=== PATIENT | male | born 1945 | race Caucasian/White ===

== ENCOUNTER 2018-03-14 16:18 | Inpatient (IN) ==
[2018-03-14] MEDS ORDERED: 0.9 % Sodium Chloride 1,000 ML IVC ONE (17:22)
[2018-03-14 17:32] LABS: Basophils # 0.1 K/mcL (0.0-0.2); Basophils % 0.5 %; Eosinophils # 0.3 K/mcL (0.0-0.6); Eosinophils % 2.8 %; Hematocrit 38.8 % (37.5-50.1); Hemoglobin 13.4 g/dL (12.9-16.9); Immature Granulocytes % 0.4 % (0-4); Lymphocytes # 1.5 K/mcL (0.6-4.6); Lymphocytes % 14.1 %; Mean Corpuscular HGB Conc 34.5 g/dL (31.6-35.5); Mean Corpuscular Hemoglobin 31.7 pg (28.0-33.3); Mean Corpuscular Volume 91.7 fL (83.0-100.0); Mean Platelet Volume 11.7 fL (9.4-12.4); Monocytes % 9.7 %; Neutrophils # 7.6 K/mcL (1.6-8.9); Platelet Count 242 K/mcL (140-400); Red Blood Count 4.23 M/mcL (4.19-5.50); Red Cell Distribution Width 14.8 % (11.5-14.5); Segmented Neutrophils % 72.5 %
--- NOTE | 2018-03-14 17:38 | Emergency Department Note ---
Disposition Clinical Impression: Dehydration, Renal insufficiency, Bradycardia Disposition: Admitted As Inpatient Condition: Fair Referrals: Wiliam Keane, RN [facility] [Primary Care Provider] - Forms: ED Satisfaction Letter, Work/School Release Time of Disposition: 20:59 General Adult HPI - General Chief complaint: ED Abdominal Pain Stated complaint: incontinent of bowels Time Seen by Provider: 03/14/18 16:33 Source: patient Limitations: age - History of Present Illness Pain Scale: 0 - Related Data Home Medications Medication Instructions Recorded Confirmed Calcium Carbonate/Vitamin D3 1 each PO BID 07/10/16 11/13/17 [Calcium 600 + Vit D Tablet] Lisinopril 30 mg PO DAILY 07/10/16 11/13/17 Pravastatin Sodium [Pravachol] 80 mg PO HS 07/10/16 11/13/17 amLODIPine [Norvasc] 5 mg PO DAILY 07/10/16 11/13/17 Ferrous Sulfate [Iron] 325 mg PO BID 03/14/18 03/14/18 Furosemide [Lasix] 80 mg PO DAILY 03/14/18 03/14/18 Pregabalin [Lyrica] 225 mg PO BID 03/14/18 03/14/18 Ropinirole HCl [Requip] 0.5 mg PO DAILY 03/14/18 03/14/18 hydroCHLOROthiazide 25 mg PO DAILY 03/14/18 03/14/18 [Hydrochlorothiazide] Previous Rx's Medication Instructions Recorded Aspirin Enteric Coated [Aspirin EC] 325 mg PO DAILY #21 tablet. 07/09/16 Ibuprofen [Motrin] 800 mg PO Q8HR PRN #30 tablet 07/31/16 Allergies Allergy/AdvReac Type Severity Reaction Status Date / Time No Known Allergies Allergy Verified 03/14/18 20:30 Past Medical History - Past Medical History Medical history: Reports: arthritis, asthma, CVA, DVT, hypertension, TIA Surgical history: Reports: appendectomy Psychiatric history: Reports: no psych history - Social History Smoking Status: Former smoker Smokeless Tobacco Status: No Alcohol use: Reports: none Drug use: Reports: none Physical Exam - General Limitations: age General appearance: alert Course Vital Signs Temperature 98.3 F 03/14/18 16:26 Pulse Rate 77 03/14/18 16:26 Respiratory Rate 16 03/14/18 16:26 Blood Pressure 64/39 03/14/18 16:26 O2 Sat by Pulse Oximetry 88 03/14/18 16:26 Temperature 98.3 F 03/14/18 16:41 Pulse Rate 47 03/14/18 20:54 Respiratory Rate 18 03/14/18 20:54 Blood Pressure 141/127 03/14/18 20:54 O2 Sat by Pulse Oximetry 96 03/14/18 20:54 Oxygen Delivery Oxygen Delivery Nasal Cannula Medical Decision Making - Lab Data Result diagrams: 03/14/18 17:04 03/14/18 17:04 Lab Results 03/14/18 03/14/18 03/14/18 Range/Units 17:04 17:04 17:04 WBC 10.5 (4.3-11.1) K/mcL RBC 4.23 (4.19-5.50) M/mcL Hgb 13.4 (12.9-16.9) g/dL Hct 38.8 (37.5-50.1) % MCV 91.7 (83.0-100.0) fL MCH 31.7 (28.0-33.3) pg MCHC 34.5 (31.6-35.5) g/dL RDW 14.8 H (11.5-14.5) % Plt Count 242 (140-400) K/mcL MPV 11.7 (9.4-12.4) fL Immature Gran % 0.4 (0-4) % Seg Neutrophils % 72.5 % Lymphocytes % 14.1 % Monocytes % 9.7 % Eosinophils % 2.8 % Basophils % 0.5 % Neutrophils # 7.6 (1.6-8.9) K/mcL Lymphocytes # 1.5 (0.6-4.6) K/mcL Monocytes # 1.0 (0.0-1.3) K/mcL Eosinophils # 0.3 (0.0-0.6) K/mcL Basophils # 0.1 (0.0-0.2) K/mcL PT 10.6 (9.4-12.1) Seconds INR 1.0 APTT 32.7 (26.0-36.0) Seconds Sodium 139 (136-145) mEq/L Potassium 3.0 L (3.5-5.1) mEq/L Chloride 96 L (98-107) mEq/L Carbon Dioxide 29 (23-29) mEq/L BUN 79 H (8-23) mg/dL Creatinine 5.36 H (0.70-1.30) mg/dL Est GFR ( Amer) 13 L (> 60) Est GFR (Non-Af Amer) 11 L (> 60) BUN/Creatinine Ratio 15 (6-26) Glucose 123 H (70-105) mg/dL Calculated Osmolality 313 H (280-300) Calcium 11.6 H (8.6-10.3) mg/dL Total Bilirubin 0.3 (0.3-1.0) mg/dL AST 31 (13-39) Units/L ALT 39 (7-52) Units/L Alkaline Phosphatase 59 (34-104) Units/L Serum Total Protein 7.0 (6.4-8.9) g/dL Albumin 4.0 (3.5-5.7) g/dL Globulin 3.0 (2.4-3.5) g/dL Albumin/Globulin Ratio 1.3 (1.1-2.2) Urine Color (Yellow) Urine Clarity (Clear) Urine pH (5.0-8.0) pH Units Ur Specific [place] (1.010-1.025) Urine Protein (Neg-Trace) mg/dL Urine Glucose (UA) (Normal) mg/dL Urine Ketones (Negative) mg/dL Urine Blood (Negative) Urine Nitrite (Negative) Urine Bilirubin (Negative) Urine Urobilinogen (Normal) mg/dL Ur Leukocyte Esterase (Negative) Stool Occult Bld Scrn (Negative) 03/14/18 03/14/18 Range/Units 18:20 19:50 WBC (4.3-11.1) K/mcL RBC (4.19-5.50) M/mcL Hgb (12.9-16.9) g/dL Hct (37.5-50.1) % MCV (83.0-100.0) fL MCH (28.0-33.3) pg MCHC (31.6-35.5) g/dL RDW (11.5-14.5) % Plt Count (140-400) K/mcL MPV (9.4-12.4) fL Immature Gran % (0-4) % Seg Neutrophils % % Lymphocytes % % Monocytes % % Eosinophils % % Basophils % % Neutrophils # (1.6-8.9) K/mcL Lymphocytes # (0.6-4.6) K/mcL Monocytes # (0.0-1.3) K/mcL Eosinophils # (0.0-0.6) K/mcL Basophils # (0.0-0.2) K/mcL PT (9.4-12.1) Seconds INR APTT (26.0-36.0) Seconds Sodium (136-145) mEq/L Potassium (3.5-5.1) mEq/L Chloride (98-107) mEq/L Carbon Dioxide (23-29) mEq/L BUN (8-23) mg/dL Creatinine (0.70-1.30) mg/dL Est GFR ( Amer) (> 60) Est GFR (Non-Af Amer) (> 60) BUN/Creatinine Ratio (6-26) Glucose (70-105) mg/dL Calculated Osmolality (280-300) Calcium (8.6-10.3) mg/dL Total Bilirubin (0.3-1.0) mg/dL AST (13-39) Units/L ALT (7-52) Units/L Alkaline Phosphatase (34-104) Units/L Serum Total Protein (6.4-8.9) g/dL Albumin (3.5-5.7) g/dL Globulin (2.4-3.5) g/dL Albumin/Globulin Ratio (1.1-2.2) Urine Color Yellow (Yellow) Urine Clarity Turbid A (Clear) Urine pH 6.5 (5.0-8.0) pH Units Ur Specific [place] 1.016 (1.010-1.025) Urine Protein 100 H (Neg-Trace) mg/dL Urine Glucose (UA) Normal (Normal) mg/dL Urine Ketones Trace H (Negative) mg/dL Urine Blood Moderate H (Negative) Urine Nitrite Negative (Negative) Urine Bilirubin Negative (Negative) Urine Urobilinogen Normal (Normal) mg/dL Ur Leukocyte Esterase Large H (Negative) Stool Occult Bld Scrn Positive A (Negative) Attestation Statement - Attestation Attestation: I, Alden Houston DO, examined this patient [id number] and my medical decision-making was reviewed with Quinton Sandoval PGY-3, Resident Physician. I agree with the documented findings, disposition and treatment plan as described except to the extent set forth below. Please see my progress notes for details. 72-year-old male presents emergency room with complaint of lower abdominal pain and discomfort along with incontinence of stool. Is having incontinence of stool for several months. Patient also has had dark black colored stool that same timeframe. He denies any history of GI bleed course gross blood in his stool. Denies any fevers or chills chest pain shortness of breath headache or vision change. He does have a history of low blood pressure that comes and goes. He does take blood pressure medication. Physical exam shows a well- appearing gentleman he is alert he is oriented his mucous members are moist his oropharynx is patent trachea is midline his lungs are clear his heart is regular his abdomen is soft nontender nondistended with no guarding no rigidity no peritoneal symptoms. He does have some left lower quadrant discomfort but no point tenderness or peritoneal-like symptoms. He moves both extremities without any complication in the upper and lower orientation. His pulses are intact. His conjunctiva appear to be normal with no signs of pale presentation he has no visible signs of anemia at least noted at this point. Patient will have Hemoccult testing completed along with CBC chemistry liver function testing and lipase on CT imaging of the abdomen and urinalysis. Fluids and nausea medication will be started. Disposition pending the full workup and treatment course. See detailed documentation of physical exam, medical intervention, medical decision-making and disposition in the resident physician' s note. 1946 Patient found to have a potassium of 3.0. His hemoglobin is stable. His coagulation studies are normal. Patient does have significantly elevated BUN/ creatinine, creatinine, significantly decreased GFR. Patient will be provided with fluids. Nephrology consultation will be established. CT imaging of the abdomen is still pending. Disposition will be admission the hospital as a full workup and treatment course are completed. No critical care applied the patient 's treatment course at this time 2044 CT imaging the abdomen is unremarkable for acute intra-abdominal pathology. He does have a stable appearing 3.2 cm abdominal aortic aneurysm. There is no signs of bleed or leak. Patient's renal insufficiency is unknown etiology at this time. Fluid resuscitation was started. Potassium was provided. She will process completed to the hospitalist. No other concerns or issues. Patient is otherwise currently stable. His heart rate has dropped down into the 40s with the patient has been asymptomatic and conversational throughout these events. He may have overmedication as part of his etiology as well. Fluids have been given here and his initial presentation with a heart rate of 77 may have been response to his dehydration. Admission process to be established at this time.
[2018-03-14] MEDS ORDERED: Ondansetron 4 MG/2 ML VIAL IVP ONE (17:42)
[2018-03-14 17:43] LABS: Albumin/Globulin Ratio 1.3 (1.1-2.2); Bilirubin,Total 0.3 mg/dL (0.3-1.0); Calcium 11.6 mg/dL (8.6-10.3)
[2018-03-14 18:00] LABS: Prothrombin Time 10.6 Seconds (9.4-12.1)
[2018-03-14 18:02] LABS: Activated Partial Thrombo Time 32.7 Seconds (26.0-36.0)
[2018-03-14 18:31] LABS: Bilirubin,Urine Negative (Negative); Blood,Urine Moderate (Negative); Clarity,Urine Turbid (Clear); Color,Urine Yellow (Yellow); Glucose,Urine (UA) Normal (Normal); Ketones,Urine Trace mg/dL (Negative); Leukocyte Esterase,Urine Large (Negative); Nitrite,Urine Negative (Negative); PH,Urine 6.5 pH Units (5.0-8.0); Protein,Urine 100 mg/dL (Neg-Trace); Specific Gravity,Urine 1.016 (1.010-1.025); Urobilinogen,Urine Normal (Normal)
[2018-03-14] MEDS ORDERED: Potassium Chloride 40 MEQ, Lidocaine 1% 2 ML in D5% in Water 500 ML IVPB ONE (19:57)
[2018-03-14] MEDS: 0.9 % Sodium Chloride 1,000 ML IVC SCH (20:51)
--- NOTE | 2018-03-14 21:30 | Emergency Department Note ---
Disposition Clinical Impression: Dehydration, Renal insufficiency, Bradycardia Disposition: Admitted As Inpatient Condition: Fair Time of Disposition: 20:00 Abdominal Pain HPI - General Chief Complaint: ED Abdominal Pain Stated Complaint: incontinent of bowels Time Seen by Provider: 03/14/18 16:33 Source: patient Limitations: no limitations Nursing Notes Reviewed: Yes Vital Signs Reviewed: Yes - History of Present Illness HPI Narrative: Mr. Pompa is a 72-year-old male with past medical history of CVA approximately 11 years ago, and NEMO in the past who presents to the ED for dark stools, bowel incontinence, and lower abdominal pain that have been present for the past several months. There are no reports of nausea, vomiting, or hematochezia. He does admit to diarrhea intermittently over the past several months as well that have been treated successfully with antidiarrheal medication but he is currently having diarrhea. Pain Scale: 0 - Related Data Home Medications Medication Instructions Recorded Confirmed Calcium Carbonate/Vitamin D3 1 tab PO BID 07/10/16 03/14/18 [Calcium 600 + Vit D Tablet] Lisinopril 30 mg PO DAILY 07/10/16 03/14/18 Pravastatin Sodium [Pravachol] 80 mg PO HS 07/10/16 03/14/18 amLODIPine [Norvasc] 5 mg PO DAILY 07/10/16 03/14/18 Ferrous Sulfate [Iron] 325 mg PO BID 03/14/18 03/14/18 Furosemide [Lasix] 80 mg PO DAILY 03/14/18 03/14/18 Pregabalin [Lyrica] 225 mg PO BID 03/14/18 03/14/18 Ropinirole HCl [Requip] 0.5 mg PO DAILY 03/14/18 03/14/18 hydroCHLOROthiazide 25 mg PO DAILY 03/14/18 03/14/18 [Hydrochlorothiazide] Previous Rx's Medication Instructions Recorded Aspirin Enteric Coated [Aspirin EC] 325 mg PO DAILY #21 tablet. 07/09/16 Ibuprofen [Motrin] 800 mg PO Q8HR PRN #30 tablet 07/31/16 Allergies Allergy/AdvReac Type Severity Reaction Status Date / Time No Known Allergies Allergy Verified 03/14/18 20:30 Constitutional: Denies: fever, chills, weakness, weight change Eyes: Denies: eye pain, eye discharge, vision change Cardiovascular: Denies: chest pain, palpitations, dyspnea on exertion, edema, syncope Respiratory: Denies: cough, dyspnea, wheezes, hemoptysis, stridor Gastrointestinal: Reports: abdominal pain, diarrhea, melena. Denies: nausea, vomiting, constipation, hematemesis, hematochezia Genitourinary: Denies: urgency, dysuria, frequency, hematuria Musculoskeletal: Denies: arthralgia, myalgia Integumentary: Denies: rash, abrasion, lesions Neurological: Denies: headache, weakness, numbness, paresthesias, confusion, abnormal gait, vertigo Psychiatric: Denies: anxiety, depression, suicidal thoughts, homicidal thoughts , auditory hallucinations, visual hallucinations Endocrine: Denies: fatigue Hematological/Lymphatic: Denies: easy bleeding, easy bruising Abdominal Pain PMH - Past Medical History Medical history: Reports: arthritis, asthma, CVA, DVT, hypertension, TIA Male Surgical History: Reports: appendectomy Psychiatric history: Reports: no psych history - Social History Smoking status: Former smoker Alcohol use: Reports: none Drug use: Reports: none Physical Exam - General Limitations: no limitations, age General appearance: alert - Head Head exam: atraumatic, normocephalic, normal inspection - Eye Eye exam: Present: normal appearance, PERRL, EOMI - ENT ENT exam: normal oropharynx, mucous membranes dry - Neck Neck exam: Present: normal inspection, full ROM, trachea midline - Chest Chest inspection: Present: normal inspection, symmetric chest wall rise - Respiratory Respiratory exam: Present: normal lung sounds bilaterally - Cardiovascular Cardiovascular exam: Present: regular rate, normal rhythm, normal heart sounds - Abdominal Exam Abdominal exam: Present: soft, tenderness. Absent: distention, guarding, rebound, rigidity - Rectal Exam Rectal exam: Present: normal rectal tone, heme (+) stool - Extremities Exam Extremities exam: Present: normal inspection, full ROM. Absent: tenderness, pedal edema - Neurological Exam Neurological exam: Present: alert, oriented X3 - Psychiatric Psychiatric exam: Present: normal affect, normal mood - Skin Skin exam: Present: warm, dry, intact, normal color Course Course Narrative: Patient arrives complaining of lower abdominal pain, dark stools, and incontinence. His blood pressure on arrival was checked several times and was around 60/40. He was given a bolus of normal saline with significant improvement in his foot pressure. CT scan of the abdomen was nonacute. Hemoccult is positive. Chart review shows the patient's baseline creatinine appears to be high end of normal however on laboratory testing in the ED today it was elevated at 5.36. We contacted nephrology about the patient's case and they will follow him Vital Signs Temperature 98.3 F 03/14/18 16:26 Pulse Rate 77 03/14/18 16:26 Respiratory Rate 16 03/14/18 16:26 Blood Pressure 64/39 03/14/18 16:26 O2 Sat by Pulse Oximetry 88 03/14/18 16:26 Temperature 98.3 F 03/14/18 16:41 Pulse Rate 47 03/14/18 20:54 Respiratory Rate 16 03/14/18 21:24 Blood Pressure 118/60 03/14/18 21:24 O2 Sat by Pulse Oximetry 96 03/14/18 20:54 Oxygen Delivery Oxygen Delivery Nasal Cannula Abdominal Pain - MDM Narrative Medical decision making narrative: Patient's blood pressure stabilized with fluid bolus, Hemoccult positive, CT scan abdomen/pelvis nonacute. Given the patient's significant elevation in creatinine and NEMO we have consult with nephrology who agrees to see the patient in the hospital - Lab Data Result diagrams: 03/14/18 17:04 03/14/18 17:04 Lab Results 03/14/18 03/14/18 03/14/18 Range/Units 17:04 17:04 17:04 WBC 10.5 (4.3-11.1) K/mcL RBC 4.23 (4.19-5.50) M/mcL Hgb 13.4 (12.9-16.9) g/dL Hct 38.8 (37.5-50.1) % MCV 91.7 (83.0-100.0) fL MCH 31.7 (28.0-33.3) pg MCHC 34.5 (31.6-35.5) g/dL RDW 14.8 H (11.5-14.5) % Plt Count 242 (140-400) K/mcL MPV 11.7 (9.4-12.4) fL Immature Gran % 0.4 (0-4) % Seg Neutrophils % 72.5 % Lymphocytes % 14.1 % Monocytes % 9.7 % Eosinophils % 2.8 % Basophils % 0.5 % Neutrophils # 7.6 (1.6-8.9) K/mcL Lymphocytes # 1.5 (0.6-4.6) K/mcL Monocytes # 1.0 (0.0-1.3) K/mcL Eosinophils # 0.3 (0.0-0.6) K/mcL Basophils # 0.1 (0.0-0.2) K/mcL PT 10.6 (9.4-12.1) Seconds INR 1.0 APTT 32.7 (26.0-36.0) Seconds Sodium 139 (136-145) mEq/L Potassium 3.0 L (3.5-5.1) mEq/L Chloride 96 L (98-107) mEq/L Carbon Dioxide 29 (23-29) mEq/L BUN 79 H (8-23) mg/dL Creatinine 5.36 H (0.70-1.30) mg/dL Est GFR ( Amer) 13 L (> 60) Est GFR (Non-Af Amer) 11 L (> 60) BUN/Creatinine Ratio 15 (6-26) Glucose 123 H (70-105) mg/dL Calculated Osmolality 313 H (280-300) Calcium 11.6 H (8.6-10.3) mg/dL Total Bilirubin 0.3 (0.3-1.0) mg/dL AST 31 (13-39) Units/L ALT 39 (7-52) Units/L Alkaline Phosphatase 59 (34-104) Units/L Serum Total Protein 7.0 (6.4-8.9) g/dL Albumin 4.0 (3.5-5.7) g/dL Globulin 3.0 (2.4-3.5) g/dL Albumin/Globulin Ratio 1.3 (1.1-2.2) Urine Color (Yellow) Urine Clarity (Clear) Urine pH (5.0-8.0) pH Units Ur Specific [place] (1.010-1.025) Urine Protein (Neg-Trace) mg/dL Urine Glucose (UA) (Normal) mg/dL Urine Ketones (Negative) mg/dL Urine Blood (Negative) Urine Nitrite (Negative) Urine Bilirubin (Negative) Urine Urobilinogen (Normal) mg/dL Ur Leukocyte Esterase (Negative) Stool Occult Bld Scrn (Negative) 03/14/18 03/14/18 Range/Units 18:20 19:50 WBC (4.3-11.1) K/mcL RBC (4.19-5.50) M/mcL Hgb (12.9-16.9) g/dL Hct (37.5-50.1) % MCV (83.0-100.0) fL MCH (28.0-33.3) pg MCHC (31.6-35.5) g/dL RDW (11.5-14.5) % Plt Count (140-400) K/mcL MPV (9.4-12.4) fL Immature Gran % (0-4) % Seg Neutrophils % % Lymphocytes % % Monocytes % % Eosinophils % % Basophils % % Neutrophils # (1.6-8.9) K/mcL Lymphocytes # (0.6-4.6) K/mcL Monocytes # (0.0-1.3) K/mcL Eosinophils # (0.0-0.6) K/mcL Basophils # (0.0-0.2) K/mcL PT (9.4-12.1) Seconds INR APTT (26.0-36.0) Seconds Sodium (136-145) mEq/L Potassium (3.5-5.1) mEq/L Chloride (98-107) mEq/L Carbon Dioxide (23-29) mEq/L BUN (8-23) mg/dL Creatinine (0.70-1.30) mg/dL Est GFR ( Amer) (> 60) Est GFR (Non-Af Amer) (> 60) BUN/Creatinine Ratio (6-26) Glucose (70-105) mg/dL Calculated Osmolality (280-300) Calcium (8.6-10.3) mg/dL Total Bilirubin (0.3-1.0) mg/dL AST (13-39) Units/L ALT (7-52) Units/L Alkaline Phosphatase (34-104) Units/L Serum Total Protein (6.4-8.9) g/dL Albumin (3.5-5.7) g/dL Globulin (2.4-3.5) g/dL Albumin/Globulin Ratio (1.1-2.2) Urine Color Yellow (Yellow) Urine Clarity Turbid A (Clear) Urine pH 6.5 (5.0-8.0) pH Units Ur Specific [place] 1.016 (1.010-1.025) Urine Protein 100 H (Neg-Trace) mg/dL Urine Glucose (UA) Normal (Normal) mg/dL Urine Ketones Trace H (Negative) mg/dL Urine Blood Moderate H (Negative) Urine Nitrite Negative (Negative) Urine Bilirubin Negative (Negative) Urine Urobilinogen Normal (Normal) mg/dL Ur Leukocyte Esterase Large H (Negative) Stool Occult Bld Scrn Positive A (Negative) - Radiology Data Radiology results reviewed: Yes I reviewed the patient's radiology results. Attestation Statement - Attestation Attestation: I, Alden Houston DO, examined this patient [id number] and my medical decision-making was reviewed with Quinton Sandoval PGY-3, Resident Physician. I agree with the documented findings, disposition and treatment plan as described except to the extent set forth below. Please see my progress notes for details.
[2018-03-15] MEDS: 0.9 % Sodium Chloride 1,000 ML IVC SCH ×2 (08:44→15:31)
[2018-03-15 09:50] LABS: Basophils # 0.1 K/mcL (0.0-0.2); Basophils % 0.8 %; Eosinophils # 0.4 K/mcL (0.0-0.6); Hematocrit 38.8 % (37.5-50.1); Hemoglobin 12.8 g/dL (12.9-16.9); Immature Granulocytes % 0.3 % (0-4); Lymphocytes # 1.1 K/mcL (0.6-4.6); Lymphocytes % 17.9 %; Mean Corpuscular Hemoglobin 30.5 pg (28.0-33.3); Mean Corpuscular Volume 92.6 fL (83.0-100.0); Mean Platelet Volume 11.6 fL (9.4-12.4); Monocytes # 0.6 K/mcL (0.0-1.3); Monocytes % 8.9 %; Neutrophils # 4.1 K/mcL (1.6-8.9); Platelet Count 173 K/mcL (140-400); Red Blood Count 4.19 M/mcL (4.19-5.50); Red Cell Distribution Width 14.4 % (11.5-14.5); Segmented Neutrophils % 65.1 %
[2018-03-15 10:09] LABS: Albumin 3.7 g/dL (3.5-5.7); Albumin/Globulin Ratio 1.3 (1.1-2.2); Bilirubin,Total 0.4 mg/dL (0.3-1.0); Calcium 10.2 mg/dL (8.6-10.3); Globulin 2.9 g/dL (2.4-3.5); Potassium 3.6 mEq/L (3.5-5.1); Total Protein 6.6 g/dL (6.4-8.9)
--- NOTE | 2018-03-15 10:57 | Nephrology Consult Note ---
Date of Encounter: 03/15/18 Time of Encounter: 10:20 Assessment and Plan (1) NEMO (acute kidney injury) Current Visit: Yes Status: Acute NEMO in setting of hypovolemia, hypotension and GI losses. Will continue IV hydration. Will obtain 24 hour protein. Will obtain Renal US and urine C&S. Avoid nephrotoxins. Accurate I&O's. Will continue to monitor. History of Present Illness - Reason for Consult Acute Kidney Injury - History of Present Illness Mr. Pompa is a 72 year old male who presented to ER yesterday. He states he has been having mid abdominal pain and diarrhea immediately after every time he eats. He denies vomiting.He states this has been going on for some time. He states his appetite and fluid intake decreased. 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 On presentation, hypotensive SBP 60's, bradycardic 40's-50's both of which responded to IV fluids. Creat 5.36 , K 3.0. Given K rider. FOB positive. Urine + protein, blood, leuks. 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 Prior labs indicate normal renal fct with few episodes mild NEMO in 2016 and 2017, returning to normal renal fct. He denies NSAID's. He denies proteinuria, hematuria. Admits "bladder stones." He admits LE swelling "for years." Has IV 0.9 NS at 125 cc/hr. Renal fct improving, creat 3.65. K 3.6. Documented urine output 800cc. Past Med Surg Social Fam HX - Past Medical History Medical history: arthritis, asthma, CVA, DVT, hypertension, TIA Additional medical history: bph Psychiatric history: no psych history - Past Surgical History Surgical History: appendectomy Additional surgical history: left and right total knee replacement, - Social History Smoking Status: Former smoker Smokeless Tobacco Status: No Alcohol use: none Drug use: none - Family History Father Hx Family Cardiac Disorders: Yes Hx Family Respiratory Disorders: Yes Hx Family Cancer: No Hx Family GI Disorders: No Hx Family Genitourinary Disorders: No Hx Family Endocrine Disorder: No Hx Family Musculoskeletal Disorders: No Hx Family Neuromuscular Disorders: No Hx Family Neurologic Disorders: No Hx Family HEENT Disorders: No Hx Family Autoimmune Disorders: No Hx Family Reproductive Disorders: No Hx Family Psychosocial Disorders: No Mother Adopted: No Living Status: Age at : 65 Hx Family Cardiac Disorders: Yes Hx Family Respiratory Disorders: No Hx Family Cancer: No Hx Family GI Disorders: No Hx Family Genitourinary Disorders: No Hx Family Endocrine Disorder: No Hx Family Musculoskeletal Disorders: No Hx Family Neuromuscular Disorders: No Hx Family Neurologic Disorders: No Hx Family HEENT Disorders: No Hx Family Autoimmune Disorders: No Hx Family Reproductive Disorders: No Hx Family Psychosocial Disorders: No Hx Family Medical Disorders: No Medications and Allergies Aspirin Enteric Coated [Aspirin EC] 325 mg PO DAILY #21 tablet. 07/09/16 [Rx] Calcium Carbonate/Vitamin D3 [Calcium 600 + Vit D Tablet] 1 tab PO BID 07/10/16 [History] Lisinopril 30 mg PO DAILY 07/10/16 [History] Pravastatin Sodium [Pravachol] 80 mg PO HS 07/10/16 [History] amLODIPine [Norvasc] 5 mg PO DAILY 07/10/16 [History] Ibuprofen [Motrin] 800 mg PO Q8HR PRN #30 tablet 07/31/16 [Rx] Ferrous Sulfate [Iron] 325 mg PO BID 03/14/18 [History] Furosemide [Lasix] 80 mg PO DAILY 03/14/18 [History] Pregabalin [Lyrica] 225 mg PO BID 03/14/18 [History] Ropinirole HCl [Requip] 0.5 mg PO DAILY 03/14/18 [History] hydroCHLOROthiazide [Hydrochlorothiazide] 25 mg PO DAILY 03/14/18 [History] 3 Allergy/AdvReac Type Severity Reaction Status Date / Time No Known Allergies Allergy Verified 03/14/18 20:30 Review of Systems All Systems: reviewed and no additional remarkable complaints except as stated Exam - Vital Signs Vital signs: Initial Vital Signs Temp Pulse Resp BP Pulse Ox 98.3 F 77 16 64/39 88 03/14/18 16:26 03/14/18 16:26 03/14/18 16:26 03/14/18 16:26 03/14/18 16:26 Vital Signs - Last 8 Hours Temp Pulse Resp BP Pulse Ox 03/15/18 05:31 97.5 F L 52 16 151/78 95 Intake and Output 03/14/18 03/15/18 03/15/18 23:59 07:59 15:59 Intake Total 1000 / 1000 Output Total 800 / 800 Balance 200 / 200 Intake: IV Fluids 1000 / 1000 0.9 % Sodium Chloride 1,000 ML 1000 / 1000 @ 125 mls/hr IVC .Q8H MARLA Rx#: [id number] Output: Catheter 800 / 800 Other: Weight 116.89 kg 107.9 kg Patient Weight 03/15/18 23:59 Weight 107.9 kg - General Appearance General appearance: well-developed, well-nourished, appears started age, obese EENT: mucous membranes moist Neck: no JVD Respiratory: clear Cardiology: edema Additional Comments: trace pitting LE Gastrointestinal: normoactive bowel sounds, no tenderness Integumentary: warm and dry Psychiatric: mood/affect appropriate, cooperative Results - Lab Results 03/15/18 09:24 03/15/18 09:24 Most recent lab results Calcium 10.2 mg/dL (8.6-10.3) 03/15/18 09:24 Consult Discharge Plan - Plan Referrals: Wiliam Keane, SEWING MACHINE ADJUSTER [Primary Care Provider] -
--- NOTE | 2018-03-15 11:22 | Event Note ---
Date of Encounter: 03/15/18 Time of Encounter: 09:57 I was notified at 9:50 AM about patient being admitted overnight. ED did not sign out patient to night team, as confirmed by discussion with night team by [facility]. We were never notified about this patient, and we never accepted admission. Patient has been on the floor without any physician examination or orders all night. I was notified by [facility] that patient needs to be admitted to hospitalist service per interior systems carpenter Dr. Dominguez. I have agreed to evaluate patient and do full H&P.
[2018-03-15] MEDS ORDERED: Ondansetron 4 MG/2 ML VIAL IVP PRN (11:23)
[2018-03-15] MEDS ORDERED: NON-FORMULARY MEDICATION 1 EACH EACH (Calcium Carbonate/Vitamin D3 [Calcium 600 + Vit D Ta PO SCH (11:30)
[2018-03-15] MEDS ORDERED: hydroCHLOROthiazide 25 MG TABLET PO SCH (11:30)
[2018-03-15] MEDS ORDERED: Acetaminophen 325 MG TABLET PO PRN (11:37)
[2018-03-15] MEDS ORDERED: Naloxone 0.4 MG/ML INJ IVP PRN (11:37)
--- NOTE | 2018-03-15 11:45 | Internal Med History&Physical ---
Date of Encounter: 03/15/18 Time of Encounter: 11:45 Internal Medicine - H&P: HPI Chief complaint: "Stomach pain and diarrhea" Admitted From: Emergency Dept Plans for Post Hospital Care: Home History of present illness: Mr. Pompa is a 72 year old male who presented to ED with 1-day history of abdominal pain and 1-month history of diarrhea. He states that he noticed some loose, dark stool yesterday. He has also been incontinent of stool. He denies hematochezia. He previously had some nausea. He denies fever, chills, chest pain, SOB, or changes in bladder. He is ESRD on dialysis. He has chronic indwelling marmolejo for neurogenic bladder. He states that his intake of food and fluids have been good, although pain is worse after eating. In the ED, CT abdomen/pelvis was unremarkable for acute pathology. He had mild hypokalemia to 3.0. Creatinine looked to be elevated from baseline. He was given KCl PO in ED. He was given IVF and anti-emetics in ED. He was slightly bradycardiac, which improved with fluid resuscitation. Hemoccult was positive. At the time of my examination, patient looked to be in no acute distress. He wants to eat and go home. Pain in abdomen is controlled at this time. He denies nausea and vomiting. He has no other complaints at this time. Past Med Surg Social Fam HX - Past Medical History Attestation: Yes The following information was validated with the patient. Source: patient Medical history: arthritis, asthma, CVA, DVT, hypertension, TIA Additional medical history: bph Psychiatric history: no psych history - Past Surgical History Surgical History: appendectomy Additional surgical history: left and right total knee replacement, - Social History Smoking Status: Former smoker Smokeless Tobacco Status: No Alcohol use: none Drug use: none - Family History Father Hx Family Cardiac Disorders: Yes Hx Family Respiratory Disorders: Yes Hx Family Cancer: No Hx Family GI Disorders: No Hx Family Genitourinary Disorders: No Hx Family Endocrine Disorder: No Hx Family Musculoskeletal Disorders: No Hx Family Neuromuscular Disorders: No Hx Family Neurologic Disorders: No Hx Family HEENT Disorders: No Hx Family Autoimmune Disorders: No Hx Family Reproductive Disorders: No Hx Family Psychosocial Disorders: No Mother Adopted: No Living Status: Age at : 65 Hx Family Cardiac Disorders: Yes Hx Family Respiratory Disorders: No Hx Family Cancer: No Hx Family GI Disorders: No Hx Family Genitourinary Disorders: No Hx Family Endocrine Disorder: No Hx Family Musculoskeletal Disorders: No Hx Family Neuromuscular Disorders: No Hx Family Neurologic Disorders: No Hx Family HEENT Disorders: No Hx Family Autoimmune Disorders: No Hx Family Reproductive Disorders: No Hx Family Psychosocial Disorders: No Hx Family Medical Disorders: No - Additional Family History Additional family history: Family history reviewed with patient. Internal Medicine - H&P: Meds Aspirin Enteric Coated [Aspirin EC] 325 mg PO DAILY #21 tablet.dr 07/09/16 [Rx] Calcium Carbonate/Vitamin D3 [Calcium 600 + Vit D Tablet] 1 tab PO BID 07/10/16 [History] Lisinopril 30 mg PO DAILY 07/10/16 [History] Pravastatin Sodium [Pravachol] 80 mg PO HS 07/10/16 [History] amLODIPine [Norvasc] 5 mg PO DAILY 07/10/16 [History] Ibuprofen [Motrin] 800 mg PO Q8HR PRN #30 tablet 07/31/16 [Rx] Ferrous Sulfate [Iron] 325 mg PO BID 03/14/18 [History] Furosemide [Lasix] 80 mg PO DAILY 03/14/18 [History] Pregabalin [Lyrica] 225 mg PO BID 03/14/18 [History] Ropinirole HCl [Requip] 0.5 mg PO DAILY 03/14/18 [History] hydroCHLOROthiazide [Hydrochlorothiazide] 25 mg PO DAILY 03/14/18 [History] 3 Allergy/AdvReac Type Severity Reaction Status Date / Time No Known Allergies Allergy Verified 03/14/18 20:30 All Systems PM: A 10-system review of systems was performed and is negative for pertinent findings except as documented above in the HPI. - Constitutional Vitals: Temp Pulse Resp BP Pulse Ox 97.7 F 47 16 121/51 97 03/15/18 10:53 03/15/18 10:53 03/15/18 10:53 03/15/18 10:53 03/15/18 10:53 General appearance: Present: cooperative, A&O X 3, pleasant, no acute distress, obese, answers questions appropriately - Head Head exam: Present: atraumatic, normal inspection, normocephalic - Eye Eye exam: Present: EOMI, PERRL. Absent: conjunctival injection, nystagmus, scleral icterus - ENT ENT exam: Present: mucous membranes moist, normal external ear exam, normal oropharynx - Neck Neck exam general surgery: Present: supple, trachea midline. Absent: lymphadenopathy, tenderness, thyromegaly - Respiratory Respiratory exam: Present: CTAB. Absent: accessory muscle use, rales, rhonchi, wheezes Additional comments: Normal WOB - Cardiovascular Cardiovascular exam: Present: RRR, +S1, +S2. Absent: diastolic murmur, gallop, rubs, systolic murmur Additional comments: No BLE edema - GI/Abdominal GI/Abdominal exam: Present: normal bowel sounds, soft, tenderness (Mild TTP diffusely across abdomen). Absent: distended, guarding, hepatomegaly, mass, rebound, splenomegaly - Neurological Exam Neurological exam: Present: alert, CN II-XII intact, oriented X3, no focal deficits, strengths equal and symetr throughout. Absent: motor sensory deficit , facial droop, speech deficit - Psychiatric Psychiatric exam: Present: normal affect, normal mood. Absent: agitated, anxious, depressed - Skin Skin exam: Present: dry, intact, warm. Absent: cyanosis, rash Internal Med - H&P Results - Labs CBC & Chem 7: 03/15/18 09:24 03/15/18 09:24 Labs: Short CBC 03/15/18 Range/Units 09:24 WBC 6.3 (4.3-11.1) K/mcL Hgb 12.8 L (12.9-16.9) g/dL Hct 38.8 (37.5-50.1) % Plt Count 173 (140-400) K/mcL Neutrophils # 4.1 (1.6-8.9) K/mcL BMP 03/15/18 09:24 Sodium 140 Potassium 3.6 Chloride 106 Carbon Dioxide 23 BUN 72 H Creatinine 3.65 H Glucose 138 H Calcium 10.2 Liver Function 03/15/18 Range/Units 09:24 Total Bilirubin 0.4 (0.3-1.0) mg/dL AST 29 (13-39) Units/L ALT 34 (7-52) Units/L Alkaline Phosphatase 56 (34-104) Units/L Albumin 3.7 (3.5-5.7) g/dL - Assessment and plan (1) NEMO (acute kidney injury) Current Visit: Yes Status: Acute Assessment and plan: Admit for observation with telemetry. Creatinine improved this AM. Continue IVF. Start clear liquid diet. Nephrology consulted; appreciate input. I personally discussed case with nephrology PHOTOGRAPHIC [employer]ORATORY TECHNICIAN. They are ordering repeat UA/ reflex culture, urine protein, and renal ultrasound. Strict I&Os and dialy weights. Repeat BMP in AM. (2) GI bleed Current Visit: Yes Status: Acute Assessment and plan: Hemoccult positive. History of melena, diarrhea, and abdominal pain over last month. H/H stable this AM. Start protonix 40 mg IV BID. Zofran IV PRN nausea/ vomiting. Continue IVF. GI stool studies for diarrhea ordered. Recheck CBC in AM. Qualifiers: GI bleed type/associated pathology: unspecified gastrointestinal hemorrhage type Qualified Code(s): K92.2 - Gastrointestinal hemorrhage, unspecified (3) Diarrhea Current Visit: Yes Status: Acute Assessment and plan: Management as per above. Qualifiers: Diarrhea type: unspecified type Qualified Code(s): R19.7 - Diarrhea, unspecified (4) Dehydration Current Visit: Yes Status: Acute Assessment and plan: Continue IVF as per above. Recheck BMP in AM. (5) Bradycardia Current Visit: Yes Status: Acute Assessment and plan: Improved with fluid resuscitation. Continue telemetry. BP trending up, so restarted home BP medications without HR effects. (6) Neurogenic bladder Current Visit: Yes Status: Chronic Assessment and plan: Continue chronic marmolejo and change per schedule. (7) Obesity Current Visit: Yes Status: Chronic Assessment and plan: Counselled on lifestyle modifications. Qualifiers: Obesity type: unspecified obesity type Obesity classification: unspecified obesity classification Serious obesity comorbidity presence: unspecified whether serious comorbidity present Qualified Code(s): E66.9 - Obesity, unspecified (8) DVT prophylaxis Current Visit: Yes Status: Acute Assessment and plan: Start renally dosed lovenox 30 mg SQ QD and SCDs. - Time Spent With Patient Total time spent is greater than 50% in coordination of care (as documented) at patient's floor/unit and/or counseling patient: less than 15 minutes
[2018-03-15] MEDS: amLODIPine 5 MG TABLET PO SCH (12:09)
[2018-03-15] MEDS: Aspirin Enteric Coated 325 MG Tablet PO SCH (12:09)
[2018-03-15] MEDS: Pantoprazole 40 MG VIAL IVP SCH ×4 (12:11→19:30)
[2018-03-15] MEDS: Pregabalin 75 MG CAPSULE PO SCH ×2 (12:11→21:45)
[2018-03-15] MEDS: rOPINIRole 0.25 MG TABLET PO SCH (12:12)
[2018-03-15 15:35] LABS: Bilirubin,Urine Negative (Negative); Blood,Urine Large (Negative); Clarity,Urine Cloudy (Clear); Color,Urine Yellow (Yellow); Glucose,Urine (UA) Normal (Normal); Ketones,Urine Negative (Negative); Leukocyte Esterase,Urine Large (Negative); Nitrite,Urine Negative (Negative); PH,Urine 6.5 pH Units (5.0-8.0); Protein,Urine Negative (Neg-Trace); Specific Gravity,Urine 1.007 (1.010-1.025); Urobilinogen,Urine Normal (Normal)
[2018-03-15 15:36] LABS: Bacteria,Urine Many per hpf (None-Few); Hyaline Casts,Urine None Seen per lpf (None-Few); Squamous Epithelial Cell,Urine Moderate per lpf (None-Few); WBC,Urine 30-50 per hpf (0-3)
[2018-03-15 18:02] LABS: Adenovirus F 40/41 PCR Not detected (Not detect); Astrovirus PCR Not detected (Not detect); C.difficile Toxin A/B by PCR Not detected (Not detect); Campylobacter by PCR Not detected (Not detect); Cryptosporidium by PCR Not detected (Not detect); Cyclospora cayetanensis PCR Not detected (Not detect); E. coli O157 by PCR Not detected (Not detect); Entamoeba histolytica PCR Not detected (Not detect); Enteroaggregative E.coli(EAEC) Not detected (Not detect); Enteropathogenic E.coli(EPEC) Not detected (Not detect); Enterotoxigenic E.coli (ETEC) Not detected (Not detect); Giardia lamblia PCR Not detected (Not detect); Norovirus GI/GII PCR Not detected (Not detect); Plesiomonas shigelloides PCR Not detected (Not detect); Rotavirus A PCR Not detected (Not detect); Salmonella PCR Not detected (Not detect); Sapovirus PCR Not detected (Not detect); Shig/EnteroinvasiveE coli EIEC Not detected (Not detect); Shigalike tox-prod E coli STEC Not detected (Not detect); Vibrio PCR Not detected (Not detect); Vibrio cholerae PCR Not detected (Not detect); Yersinia enterocolitica PCR Not detected (Not detect)
[2018-03-16] MEDS: Pantoprazole 40 MG VIAL IVP SCH (06:04)
[2018-03-16] MEDS: *HR* Enoxaparin 30 MG/0.3 ML SYRINGE SQ SCH (06:04)
[2018-03-16] MEDS ORDERED: Aminoglycoside Consult 1 EACH MC ONE (08:19)
[2018-03-16 08:44] LABS: Protein/Creatinine Ratio,Urine 0.46 mg/mg (0.00-0.20)
[2018-03-16] MEDS: amLODIPine 5 MG TABLET PO SCH (09:33)
[2018-03-16] MEDS: Pregabalin 75 MG CAPSULE PO SCH ×2 (09:33→22:13)
[2018-03-16] MEDS: rOPINIRole 0.25 MG TABLET PO SCH (09:33)
[2018-03-16] MEDS: 0.9 % Sodium Chloride 1,000 ML IVC SCH ×2 (09:34→18:13)
[2018-03-16] MEDS: Aspirin Enteric Coated 325 MG Tablet PO SCH (09:34)
[2018-03-16 10:24] LABS: Basophils % 0.5 %; Eosinophils # 0.3 K/mcL (0.0-0.6); Eosinophils % 4.8 %; Hematocrit 33.2 % (37.5-50.1); Hemoglobin 11.2 g/dL (12.9-16.9); Immature Granulocytes % 0.3 % (0-4); Lymphocytes # 0.9 K/mcL (0.6-4.6); Lymphocytes % 13.8 %; Mean Corpuscular HGB Conc 33.7 g/dL (31.6-35.5); Mean Corpuscular Hemoglobin 31.3 pg (28.0-33.3); Mean Corpuscular Volume 92.7 fL (83.0-100.0); Monocytes # 0.6 K/mcL (0.0-1.3); Monocytes % 8.9 %; Neutrophils # 4.5 K/mcL (1.6-8.9); Platelet Count 175 K/mcL (140-400); Red Blood Count 3.58 M/mcL (4.19-5.50); Red Cell Distribution Width 14.3 % (11.5-14.5); Segmented Neutrophils % 71.7 %
[2018-03-16 10:43] LABS: Albumin 3.2 g/dL (3.5-5.7); Albumin/Globulin Ratio 1.3 (1.1-2.2); Bilirubin,Total 0.3 mg/dL (0.3-1.0); Calcium 8.9 mg/dL (8.6-10.3); Globulin 2.5 g/dL (2.4-3.5); Magnesium 1.4 mg/dL (1.6-2.6); Potassium 3.2 mEq/L (3.5-5.1); Total Protein 5.7 g/dL (6.4-8.9)
[2018-03-16] MEDS: cefTRIAXone 2,000 MG in 0.9 % Sodium Chloride Mini Bag 100 ML IVPB SCH (11:02)
--- NOTE | 2018-03-16 11:18 | Nephrology Progress Note ---
Date of Encounter: 03/16/18 Time of Encounter: 11:10 - Assessment and Plan (1) NEMO (acute kidney injury) Current Visit: Yes Status: Acute NEMO in setting of hypovolemia, hypotension and GI losses. Hx neurogenic bladder with chronic Joyce. Renal fct improving, creat 1.93, documented urine output 2800cc. Will continue IV hydration. Renal US, no obstructive uropathy. Complex renal cyst left kidney. Will have to follow with CT w/contrast after renal fct improved. Avoid nephrotoxins. Accurate I&O's. Will continue to monitor. Subjective Interval history: Laying in bed, watching tv. Wants to go home, states feeling better. No new complaints. 24 hour urine protein in progress. Objective - Vital Signs Vital signs: Vital Signs Temp Pulse Resp BP Pulse Ox 03/16/18 07:52 97.7 F 52 15 142/61 97 03/16/18 03:18 98.0 F 50 16 127/72 99 03/16/18 01:17 97.6 F 54 18 143/60 97 03/15/18 20:14 97.9 F 62 16 122/69 98 03/15/18 16:44 97.5 F L 57 19 119/81 100 Intake and Output 03/15/18 03/16/18 03/16/18 23:59 07:59 15:59 Intake Total 1850 / 1850 Output Total 1999 / 1999 1100 / 1100 Balance -150 / -150 -1100 / -1100 Intake: IV Fluids 1000 / 1000 0.9 % Sodium Chloride 1,000 ML 1000 / 1000 @ 125 mls/hr IVC .Q8H [facility] Rx#: [id number] Oral 850 / 850 Output: Urine 600 / 600 Catheter 2000 / 2000 500 / 500 Other: Meal Dinner Breakfast Percent of Meal Consumed 100% Weight 110.586 kg Patient Weight 03/16/18 23:59 Weight 110.586 kg - General Appearance General appearance: Present: well-developed, well-nourished, appears started age , obese EENT: Present: mucous membranes moist Neck: Present: no JVD Respiratory: Present: clear Cardiology: Present: edema, regular rate, regular rhythm Additional Comments: mild Gastrointestinal: Present: normoactive bowel sounds, no tenderness Integumentary: Present: warm and dry Neurologic: Present: alert and oriented x3 - Lab 03/16/18 10:05 06/16/18 09:23 Most recent lab results Calcium 8.9 mg/dL (8.6-10.3) 03/16/18 09:23 Magnesium 1.4 mg/dL (1.6-2.6) L 03/16/18 09:23 Urine Creatinine TNP 03/15/18 15:10 Ur Total Protein 24 Hr TNP 03/15/18 15:10 Urine Total Protein TNP 03/15/18 15:10 - VTE Documentation of Mechanical Device: Intermittent pneumatic compression device Consult Discharge Plan - Plan Referrals: Wiliam Keane, [employer] [Primary Care Provider] -
--- NOTE | 2018-03-16 16:50 | Internal Med Progress Note ---
Date of Encounter: 03/16/18 Time of Encounter: 08:45 - Assessment and plan (1) Diarrhea Current Visit: Yes Status: Acute Assessment and plan: Currently improved. Possible reason for acute kidney injury. Stool GI panel including C. difficile negative. Continue IV hydration and when necessary loperamide Diet as tolerated. Qualifiers: Diarrhea type: unspecified type Qualified Code(s): R19.7 - Diarrhea, unspecified (2) NEMO (acute kidney injury) Current Visit: Yes Status: Acute Assessment and plan: Noted to have a few episodes of NEMO with normal serum creatinine in between. Serum creatinine noted to have improved today to 1.93, from 5.36. Nephrology on board, appreciate recommendations. Continue IV hydration and monitor urine output. Avoid new nephrotoxic agents. Hold diuretic and REGULO inhibitor. Renal ultrasound shows simple cyst in right superior pole, complex cyst in inferior lateral left kidney containing calcifications. CT abdomen with contrast is recommended for further evaluation. (3) Neurogenic bladder Current Visit: Yes Status: Chronic Assessment and plan: Continue chronic marmolejo and change per schedule. (4) Dehydration Current Visit: Yes Status: Acute (5) Bradycardia Current Visit: Yes Status: Resolved (6) DVT prophylaxis Current Visit: Yes Status: Acute (7) Obesity Current Visit: Yes Status: Chronic Qualifiers: Obesity type: unspecified obesity type Obesity classification: adult class 2 (BMI 35 - 39.9) Serious obesity comorbidity presence: unspecified whether serious comorbidity present Body mass index: BMI 37.0-37.9 Qualified Code(s) : E66.9 - Obesity, unspecified; Z68.37 - Body mass index (BMI) 37.0-37.9, adult (8) UTI (urinary tract infection) Current Visit: Yes Status: Acute Assessment and plan: Catheter related UTI due to chronic Marmolejo catheter. Urinalysis shows large leukocyte esterase, 30-50 WBC, many bacteria. Preliminary urine culture grows gram-positive cocci and gram-negative rods. Continue IV Rocephin and added IV vancomycin. Qualifiers: Urinary tract infection type: acute cystitis Hematuria presence: with hematuria Qualified Code(s): N30.01 - Acute cystitis with hematuria - Time Spent With Patient Total time spent is greater than 50% in coordination of care (as documented) at patient's floor/unit and/or counseling patient: - Subjective Interval history: Reports feeling well and wants to go home; improving diarrhea; no nausea or vomiting, no fever/chills, abdominal pain; unable to tell me the duration of diarrhea but probably a few days; no sick contacts at home; no h/o- CKD as far as he knows; - Constitutional Vitals: Temp Pulse Resp BP Pulse Ox 97.8 F 51 18 111/70 96 03/16/18 15:15 03/16/18 15:15 03/16/18 15:15 03/16/18 15:15 03/16/18 15:15 General appearance: Present: cooperative, A&O X 3, obese, answers questions appropriately - Respiratory Respiratory exam: Present: CTAB. Absent: accessory muscle use, rales, rhonchi, wheezes - Cardiovascular Cardiovascular exam: Present: RRR, +S1, +S2. Absent: diastolic murmur, gallop, rubs, systolic murmur - GI/Abdominal GI/Abdominal exam: Present: normal bowel sounds, soft (obese), no peritoneal signs. Absent: distended, tenderness - Extremities Exam Extremities exam: Present: full ROM, warm, radial pulses palpable and symmetrical. Absent: calf tenderness, cyanotic, pedal edema - Neurological Exam Neurological exam: Present: CN II-XII intact, oriented X3, no focal deficits. Absent: pronater drift, facial droop, speech deficit Internal Medicine: Result - Labs CBC & Chem 7: 03/17/18 04:30 03/17/18 04:30 Labs: Short CBC 03/16/18 Range/Units 10:05 WBC 6.2 (4.3-11.1) K/mcL Hgb 11.2 L D (12.9-16.9) g/dL Hct 33.2 L (37.5-50.1) % Plt Count 175 (140-400) K/mcL Neutrophils # 4.5 (1.6-8.9) K/mcL BMP 03/16/18 09:23 Sodium 140 Potassium 3.2 L Chloride 108 H Carbon Dioxide 25 BUN 44 H Creatinine 1.93 H Glucose 189 H Calcium 8.9 Liver Function 03/16/18 Range/Units 09:23 Total Bilirubin 0.3 (0.3-1.0) mg/dL AST 22 (13-39) Units/L ALT 28 (7-52) Units/L Alkaline Phosphatase 52 (34-104) Units/L Albumin 3.2 L (3.5-5.7) g/dL - ABG Interpretation ABG results: PT/INR, D-dimer PT 10.6 Seconds (9.4-12.1) 03/14/18 17:04 - VTE Documentation of Mechanical Device: Intermittent pneumatic compression device Consult Discharge Plan - Plan Referrals: Wiliam Keane, [employer] [Primary Care Provider] -
[2018-03-16] MEDS ORDERED: Vancomycin 1,750 MG in 0.9 % Sodium Chloride 250 ML IVPB SCH (17:00)
[2018-03-17] MEDS: 0.9 % Sodium Chloride 1,000 ML IVC SCH (03:11)
[2018-03-17 04:45] LABS: Basophils % 0.5 %; Eosinophils # 0.4 K/mcL (0.0-0.6); Eosinophils % 6.1 %; Hematocrit 35.9 % (37.5-50.1); Hemoglobin 11.9 g/dL (12.9-16.9); Immature Granulocytes % 0.3 % (0-4); Lymphocytes # 1.4 K/mcL (0.6-4.6); Lymphocytes % 23.1 %; Mean Corpuscular HGB Conc 33.1 g/dL (31.6-35.5); Mean Corpuscular Hemoglobin 30.8 pg (28.0-33.3); Mean Platelet Volume 11.2 fL (9.4-12.4); Monocytes # 0.6 K/mcL (0.0-1.3); Monocytes % 10.1 %; Neutrophils # 3.6 K/mcL (1.6-8.9); Platelet Count 190 K/mcL (140-400); Red Blood Count 3.86 M/mcL (4.19-5.50); Red Cell Distribution Width 14.5 % (11.5-14.5); Segmented Neutrophils % 59.9 %
[2018-03-17 05:08] LABS: Calcium 8.7 mg/dL (8.6-10.3); Magnesium 1.5 mg/dL (1.6-2.6); Potassium 3.4 mEq/L (3.5-5.1)
[2018-03-17] MEDS: *HR* Enoxaparin 30 MG/0.3 ML SYRINGE SQ SCH (05:47)
[2018-03-17] MEDS: Aspirin Enteric Coated 325 MG Tablet PO SCH (09:10)
[2018-03-17] MEDS: cefTRIAXone 2,000 MG in 0.9 % Sodium Chloride Mini Bag 100 ML IVPB SCH (09:10)
[2018-03-17] MEDS: Pregabalin 75 MG CAPSULE PO SCH ×2 (09:10→22:16)
[2018-03-17] MEDS: amLODIPine 5 MG TABLET PO SCH (09:10)
[2018-03-17] MEDS: rOPINIRole 0.25 MG TABLET PO SCH (09:10)
--- NOTE | 2018-03-17 09:13 | Nephrology Progress Note ---
Date of Encounter: 03/17/18 Time of Encounter: 08:40 - Assessment and Plan (1) NEMO (acute kidney injury) Current Visit: Yes Status: Acute NEMO in setting of hypovolemia, hypotension and GI losses. Hx neurogenic bladder with chronic Joyce. Renal fct improving, creat 1.49. documented urine output 2700cc. Will stop IV hydration. Renal US, no obstructive uropathy. Complex renal cyst left kidney. Will have to follow with CT w/contrast outpatient after renal fct improved. Avoid nephrotoxins. Accurate I&O's. Will continue to monitor. Subjective Interval history: Laying in bed, watching tv, eating breakfast. No new complaints. Objective - Vital Signs Vital signs: Vital Signs Temp Pulse Resp BP Pulse Ox 03/17/18 07:28 97.6 F 59 16 152/77 97 03/17/18 04:02 98.3 F 52 16 133/70 96 03/16/18 23:28 97.6 F 81 16 181/74 96 03/16/18 19:41 98.4 F 60 16 136/71 94 03/16/18 15:15 97.8 F 51 18 111/70 96 03/16/18 11:35 98.3 F 52 15 103/55 95 Intake and Output 03/16/18 03/17/18 03/17/18 23:59 07:59 15:59 Intake Total 1750 / 1750 1400 / 1400 Output Total 800 / 800 600 / 600 725 / 725 Balance 950 / 950 800 / 800 -725 / -725 Intake: IV Fluids 1500 / 1500 1400 / 1400 0.9 % Sodium Chloride 1,000 ML 1000 / 1000 1400 / 1400 @ 125 mls/hr IVC .Q8H [facility] Rx#: [id number] Vancocin 1,750 MG In 0.9 % 500 / 500 Sodium Chloride 500 ML @ 333.3 mls/hr IVPB Q24H [facility] Rx#: [id number] Oral 250 / 250 Output: Urine 200 / 200 Catheter 600 / 600 600 / 600 725 / 725 Other: Meal Dinner Percent of Meal Consumed 80% Weight 113.171 kg - General Appearance General appearance: Present: well-developed, well-nourished, appears started age , obese EENT: Present: mucous membranes moist Neck: Present: no JVD Respiratory: Present: clear Cardiology: Present: no edema, regular rate, regular rhythm Gastrointestinal: Present: normoactive bowel sounds, no tenderness Integumentary: Present: warm and dry Psychiatric: Present: mood/affect appropriate, cooperative - Lab 03/17/18 04:30 03/17/18 04:30 Most recent lab results Calcium 8.7 mg/dL (8.6-10.3) 03/17/18 04:30 Magnesium 1.5 mg/dL (1.6-2.6) L 03/17/18 04:30 Urine Creatinine TNP 03/15/18 15:10 Ur Total Protein 24 Hr TNP 03/15/18 15:10 Urine Total Protein TNP 03/15/18 15:10 - VTE Documentation of Mechanical Device: Intermittent pneumatic compression device Consult Discharge Plan - Plan Referrals: Wiliam Keane, [employer] [Primary Care Provider] -
[2018-03-17] MEDS ORDERED: Potassium Chloride Elixir 20 MEQ/15 ML UDC PO ONE (10:25)
[2018-03-17] MEDS ORDERED: Levofloxacin 500 MG/100 ML 500 MG/100 ML BAG IVPB SCH (11:00)
[2018-03-17 12:47] LABS: Total Volume 24 Hour,Urine 2.88 Liters (0.80-1.80)
[2018-03-17] MEDS: Ampicillin 2 GM in 0.9 % Sodium Chloride Mini Bag 100 ML IVPB SCH ×2 (13:38→17:22)
--- NOTE | 2018-03-17 13:46 | Internal Med Progress Note ---
Date of Encounter: 03/17/18 Time of Encounter: 11:50 - Assessment and plan (1) Diarrhea Current Visit: Yes Status: Resolved Assessment and plan: Currently improved. Possible reason for acute kidney injury. Stool GI panel including C. difficile negative. Continue IV hydration and when necessary loperamide Diet as tolerated. Qualifiers: Diarrhea type: unspecified type Qualified Code(s): R19.7 - Diarrhea, unspecified (2) NEMO (acute kidney injury) Current Visit: Yes Status: Acute Assessment and plan: Noted to have a few episodes of NEMO with normal serum creatinine in between. Serum creatinine noted to have improved today to 1.49, from 5.36. Nephrology on board, appreciate recommendations. Continue IV hydration and monitor urine output. Avoid new nephrotoxic agents. Hold diuretic and REGULO inhibitor. Renal ultrasound shows simple cyst in right superior pole, complex cyst in inferior lateral left kidney containing calcifications. CT abdomen with contrast to be considered as an outpatient to avoid IV contrast at this time; (3) Neurogenic bladder Current Visit: Yes Status: Chronic (4) Dehydration Current Visit: Yes Status: Acute (5) Bradycardia Current Visit: Yes Status: Resolved (6) DVT prophylaxis Current Visit: Yes Status: Acute (7) Obesity Current Visit: Yes Status: Chronic Qualifiers: Obesity type: unspecified obesity type Obesity classification: adult class 2 (BMI 35 - 39.9) Serious obesity comorbidity presence: unspecified whether serious comorbidity present Body mass index: BMI 37.0-37.9 Qualified Code(s) : E66.9 - Obesity, unspecified; Z68.37 - Body mass index (BMI) 37.0-37.9, adult (8) UTI (urinary tract infection) Current Visit: Yes Status: Acute Assessment and plan: Catheter related UTI due to chronic Joyce catheter. Urinalysis shows large leukocyte esterase, 30-50 WBC, many bacteria. Urine culture grows ampicillin sensitive enterococcus and Proteus resistant to Rocephin. Will change antibiotics to IV Levaquin and ampicillin. Qualifiers: Urinary tract infection type: acute cystitis Hematuria presence: with hematuria Qualified Code(s): N30.01 - Acute cystitis with hematuria (9) Hypokalemia Current Visit: Yes Status: Acute Assessment and plan: Supplement with oral potassium chloride, monitor closely. (10) Hypomagnesemia Current Visit: Yes Status: Acute Assessment and plan: Supplement with IV magnesium sulfate. - Time Spent With Patient Total time spent is greater than 50% in coordination of care (as documented) at patient's floor/unit and/or counseling patient: - Subjective Interval history: Feels well; reports taking Potassium elixir too quickly and that it is too "strong" for him; coughing after the episode; vitals stable; improved diarrhea; no nausea, vomiting, abdominal pain, noted to have appropriate urine output; - Constitutional Vitals: Temp Pulse Resp BP Pulse Ox 97.4 F L 68 15 132/78 95 03/17/18 11:47 03/17/18 11:47 03/17/18 11:47 03/17/18 11:47 03/17/18 11:47 General appearance: Present: cooperative, mild distress (due to coughing), A&O X 3, obese, answers questions appropriately - Respiratory Respiratory exam: Present: CTAB. Absent: accessory muscle use, rales, rhonchi, wheezes - Cardiovascular Cardiovascular exam: Present: RRR, +S1, +S2, tachycardia. Absent: diastolic murmur, gallop, rubs, systolic murmur - GI/Abdominal GI/Abdominal exam: Present: normal bowel sounds, soft (obese), no peritoneal signs. Absent: distended, tenderness - Extremities Exam Extremities exam: Present: full ROM, warm, radial pulses palpable and symmetrical. Absent: calf tenderness, cyanotic, pedal edema Internal Medicine: Result - Labs CBC & Chem 7: 03/17/18 04:30 03/17/18 04:30 Labs: Short CBC 03/17/18 Range/Units 04:30 WBC 6.1 (4.3-11.1) K/mcL Hgb 11.9 L (12.9-16.9) g/dL Hct 35.9 L (37.5-50.1) % Plt Count 190 (140-400) K/mcL Neutrophils # 3.6 (1.6-8.9) K/mcL BMP 03/17/18 04:30 Sodium 144 Potassium 3.4 L Chloride 112 H Carbon Dioxide 27 BUN 32 H Creatinine 1.49 H Glucose 120 H Calcium 8.7 - ABG Interpretation ABG results: PT/INR, D-dimer PT 10.6 Seconds (9.4-12.1) 03/14/18 17:04 - VTE Documentation of Mechanical Device: Intermittent pneumatic compression device Consult Discharge Plan - Plan Referrals: Wiliam Keane, [facility] [Primary Care Provider] -
[2018-03-18] MEDS: Ampicillin 2 GM in 0.9 % Sodium Chloride Mini Bag 100 ML IVPB SCH ×2 (00:26→06:03)
[2018-03-18 05:07] LABS: BUN/Creatinine Ratio 16 (6-26); Blood Urea Nitrogen 21 mg/dL (8-23); Carbon Dioxide 27 mEq/L (23-29); Chloride 111 mEq/L (98-107); Glucose 135 mg/dL (70-105); Magnesium 1.6 mg/dL (1.6-2.6); Osmolality,Calculated 303 (280-300); Potassium 3.7 mEq/L (3.5-5.1); Sodium 144 mEq/L (136-145); eGFR For African Americans > 60 (> 60); eGFR For Non-African Americans 53 (> 60)
[2018-03-18] MEDS ORDERED: *HR* Enoxaparin 40 MG/0.4 ML SYRINGE SQ SCH (06:00)
[2018-03-18] MEDS: Pregabalin 75 MG CAPSULE PO SCH (07:55)
[2018-03-18] MEDS: Aspirin Enteric Coated 325 MG Tablet PO SCH (07:55)
[2018-03-18] MEDS: amLODIPine 5 MG TABLET PO SCH (07:55)
[2018-03-18] MEDS: rOPINIRole 0.25 MG TABLET PO SCH (07:56)
--- NOTE | 2018-03-18 09:26 | Nephrology Progress Note ---
Date of Encounter: 03/18/18 Time of Encounter: 08:40 - Assessment and Plan (1) NEMO (acute kidney injury) Current Visit: Yes Status: Acute NEMO in setting of hypovolemia, hypotension and GI losses. Hx neurogenic bladder with chronic Joyce. Renal fct improving, creat 1.31. documented urine output 3925cc.Renal US, no obstructive uropathy. Complex renal cyst left kidney. Will have Urology follow with CT w/contrast outpatient after renal fct improved. Avoid nephrotoxins. Will sign off. Call again if needed. Subjective Interval history: Laying in bed, watching tv, eating breakfast. No new complaints. Objective - Vital Signs Vital signs: Vital Signs Temp Pulse Resp BP Pulse Ox 03/18/18 07:08 98.8 F 67 18 138/42 97 03/18/18 03:44 98.1 F 72 16 174/80 93 03/17/18 23:45 98.2 F 68 18 165/91 93 03/17/18 18:50 97.8 F 71 20 174/82 95 03/17/18 15:15 97.5 F L 61 17 161/67 94 03/17/18 11:47 97.4 F L 68 15 132/78 95 Intake and Output 03/17/18 03/18/18 03/18/18 23:59 07:59 15:59 Intake Total 100 / 100 200 / 200 140 / 140 Output Total 1450 / 1450 1080 / 1080 Balance -1350 / -1350 -880 / -880 140 / 140 Intake: IV Fluids 100 / 100 200 / 200 Ampicillin 2 GM In 0.9 % Sodium 100 / 100 200 / 200 Chloride (Mini-Bag +) 100 ML @ 200 mls/hr IVPB Q6HR [facility] Rx#: [id number] Oral 0 / 0 0 / 0 140 / 140 Output: Urine 480 / 480 Catheter 1450 / 1450 600 / 600 Other: Meal Breakfast Percent of Meal Consumed 100% Weight 114 kg Patient Weight 03/18/18 23:59 Weight 114 kg - General Appearance General appearance: Present: well-developed, well-nourished, appears started age , obese EENT: Present: mucous membranes moist Neck: Present: no JVD Respiratory: Present: clear Cardiology: Present: edema, regular rate, regular rhythm Additional Comments: mild Gastrointestinal: Present: normoactive bowel sounds, no tenderness Integumentary: Present: warm and dry Psychiatric: Present: mood/affect appropriate, cooperative - Lab 03/17/18 04:30 03/18/18 04:33 Most recent lab results Calcium 9.0 mg/dL (8.6-10.3) 03/18/18 04:33 Magnesium 1.6 mg/dL (1.6-2.6) 03/18/18 04:33 Urine Creatinine 53 mg/dL 03/17/18 11:11 Ur Total Protein 24 Hr 518 mg/day (50-80) H 03/17/18 11:11 Urine Total Protein 18 mg/dL (1-14) H 03/17/18 11:11 - VTE Documentation of Mechanical Device: Intermittent pneumatic compression device Consult Discharge Plan - Plan Referrals: Wiliam Keane, [employer] [Primary Care Provider] -
--- NOTE | 2018-03-18 11:29 | Discharge Summary ---
- NOTES TO OUTPATIENT PROVIDER Notes to Outpatient Provider: NEMO due to dehydration/diarrhea- improving; left renal complex cyst, needs CT abd with IV contrast as outpatient, Urology f/up. Held diuretics, ACEI for now, to be restarted when NEMO resolves; Date of Encounter: 03/18/18 Time of Encounter: 11:26 - Discharge Diagnosis (1) Diarrhea Priority: Primary Status: Resolved Qualifiers: Diarrhea type: unspecified type Qualified Code(s): R19.7 - Diarrhea, unspecified (2) NEMO (acute kidney injury) Priority: Primary Status: Acute (3) Neurogenic bladder Priority: Secondary Status: Chronic (4) Dehydration Priority: Primary Status: Resolved (5) Bradycardia Priority: Primary Status: Resolved (6) Obesity Priority: Secondary Status: Chronic Qualifiers: Obesity type: unspecified obesity type Obesity classification: adult class 2 (BMI 35 - 39.9) Serious obesity comorbidity presence: unspecified whether serious comorbidity present Body mass index: BMI 37.0-37.9 Qualified Code(s) : E66.9 - Obesity, unspecified; Z68.37 - Body mass index (BMI) 37.0-37.9, adult (7) UTI (urinary tract infection) Priority: Primary Status: Acute Qualifiers: Urinary tract infection type: acute cystitis Hematuria presence: with hematuria Qualified Code(s): N30.01 - Acute cystitis with hematuria (8) Hypokalemia Priority: Primary Status: Resolved (9) Hypomagnesemia Priority: Primary Status: Resolved Hospital course: Mr. Pompa is a 72 year old male with the above medical problems who was admitted with diarrhea, dehydration and weakness. He was noted to have acute kidney injury, likely due to prerenal etiology. He was given IV hydration with significant improvement in serum creatinine. Renal ultrasound showed left- sided complex cyst, recommended CT abdomen with IV contrast for further evaluation. Nephrology was consulted, followed the patient while in the hospital, currently deemed stable for discharge with outpatient urology follow- up. Patient has history of neurogenic bladder and chronic indwelling Joyce catheter, which needs to be changed regularly in urology office. He also needs outpatient contrast CT abdomen to evaluate left renal cyst further. He was noted to have UTI, urine culture subsequently grew Proteus and ampicillin sensitive enterococcus. He is currently medically stable for discharge with outpatient follow-up and oral antibiotics. Discharge discussed with: patient, family, nurse - Time Spent with Patient Total time spent providing and/or coordinating discharge services: Greater than 30 minutes (45 min) - Discharge Medications Prescriptions: Ampicillin Trihydrate 500 mg PO Q6H #20 capsule levoFLOXacin [Levaquin] 500 mg PO Q48H #3 tablet Home Medications: Aspirin Enteric Coated [Aspirin EC] 325 mg PO DAILY #21 tablet. 07/09/16 [Rx] Calcium Carbonate/Vitamin D3 [Calcium 600 + Vit D Tablet] 1 tab PO BID 07/10/16 [History] Pravastatin Sodium [Pravachol] 80 mg PO HS 07/10/16 [History] amLODIPine [Norvasc] 5 mg PO DAILY 07/10/16 [History] Ferrous Sulfate [Iron] 325 mg PO BID 03/14/18 [History] Pregabalin [Lyrica] 225 mg PO BID 03/14/18 [History] Ropinirole HCl [Requip] 0.5 mg PO DAILY 03/14/18 [History] Ampicillin Trihydrate 500 mg PO Q6H #20 capsule 03/18/18 [Rx] levoFLOXacin [Levaquin] 500 mg PO Q48H #3 tablet 03/18/18 [Rx] Allergies/Adverse Reactions: 3 Allergy/AdvReac Type Severity Reaction Status Date / Time No Known Allergies Allergy Verified 03/14/18 20:30 Date of admission: 03/15/18 14:06 Primary care physician: Wiliam Keane CNP Consults: 03/15/18 14:07 Consult for Pharmacy Education [CONS] Stat Reason for Consult: Lovenox dosing. Call Completed: No Discharging clinician: Camryn Maya Anticipated date of discharge: 03/18/18 - Constitutional Vitals: Temp Pulse Resp BP Pulse Ox 98.1 F 85 16 189/66 95 03/18/18 11:13 03/18/18 11:13 03/18/18 11:13 03/18/18 11:13 03/18/18 11:13 General appearance: Present: cooperative, A&O X 3, obese, answers questions appropriately - Cardiovascular Cardiovascular exam: Present: RRR, +S1, +S2, systolic murmur. Absent: diastolic murmur, gallop, rubs - Patient Status Disposition: Home, Self-Care Condition: Fair Functional capacity at discharge: independent ambulation Overall status at discharge: patient is progressing back to baseline - Discharge Instructions Instructions: Acute Kidney Injury (DC), Bradycardia (DC) Follow Up With: Denis Harley MD [Partnered Physician] - 04/02/18 10:45 am (Please follow up as scheduled. ) Wiliam Keane CNP [Primary Care Provider] - Forms: ED Satisfaction Letter, Work/School Release Additional Instructions: F/up with PCP in 1-2 weeks F/up with Urology in 1-2 weeks for Joyce catheter exchange; - Diet and Activity Activity: resume usual activities as tolerated Diet: low fat, low cholesterol, low salt diet - VTE Documentation of Mechanical Device: Intermittent pneumatic compression device
[2018-03-18 12:11] VITALS: BP 158/85
== END 2018-03-18 12:12 | disposition home or self-care (01) | DRG 698 ==
LOC: 2ANU 16:18 → EMEROO 16:18 → 2ANU 21:45 → SUATTDRO 03-15 14:06
PROVIDERS: ADMIT Family Medicine; ATTEND Internal Medicine

== ENCOUNTER 2020-01-11 13:29 | Inpatient (IN) ==
[2020-01-11] MEDS ORDERED: Ondansetron 4 MG/2 ML VIAL IVP PRN (15:42)
[2020-01-11] MEDS ORDERED: Naloxone 0.4 MG/ML INJ IVP PRN (15:42)
[2020-01-11] MEDS ORDERED: D5% in Water 1,000 ML IVC PRN (15:46)
[2020-01-11] MEDS ORDERED: Dextrose Gel 15 GM/37.5 ML TUBE PO PRN ×2 (15:46)
[2020-01-11] MEDS ORDERED: *HR* Dextrose 50 % in Water (Syg) 50 ML SYRINGE IVP PRN (15:46)
[2020-01-11] MEDS: Ringers Solution, Lactated 1,000 ML IVC SCH ×2 (16:26→21:20)
[2020-01-11] MEDS ORDERED: *HR* Labetalol 20 MG/4 ML SYRINGE IVP PRN (17:04)
[2020-01-11] MEDS: Insulin LISPRO 300 UNITS/3 ML VIAL SQ SCH ×2 (17:16→23:55)
[2020-01-11] MEDS: *HR* Heparin 5,000 UNIT/ML VIAL SQ SCH (21:20)
[2020-01-12 02:22] LABS: Basophils # 0.1 K/mcL (0.0-0.2); Basophils % 0.8 %; Eosinophils # 0.5 K/mcL (0.0-0.6); Eosinophils % 6.8 %; Hematocrit 37.1 % (37.5-50.1); Immature Granulocytes % 0.3 % (0-4); Lymphocytes # 1.5 K/mcL (0.6-4.6); Lymphocytes % 18.4 %; Mean Corpuscular HGB Conc 32.3 g/dL (31.6-35.5); Mean Corpuscular Hemoglobin 31.1 pg (28.0-33.3); Mean Corpuscular Volume 96.1 fL (83.0-100.0); Mean Platelet Volume 10.7 fL (9.4-12.4); Monocytes # 0.7 K/mcL (0.0-1.3); Monocytes % 8.8 %; Neutrophils # 5.2 K/mcL (1.6-8.9); Platelet Count 186 K/mcL (140-400); Red Blood Count 3.86 M/mcL (4.19-5.50); Red Cell Distribution Width 15.6 % (11.5-14.5); Segmented Neutrophils % 64.9 %
[2020-01-12 02:30] LABS: Prothrombin Time 11.8 Seconds (9.4-12.1)
[2020-01-12 02:43] LABS: Alanine Aminotransferase 105 Units/L (7-52); Albumin 3.6 g/dL (3.5-5.7); Albumin/Globulin Ratio 1.1 (1.1-2.2); Alkaline Phosphatase 70 Units/L (34-104); Aspartate Amino Transferase 146 Units/L (13-39); BUN/Creatinine Ratio 13 (6-26); Bilirubin,Total 0.5 mg/dL (0.3-1.0); Blood Urea Nitrogen 16 mg/dL (8-23); Calcium 9.1 mg/dL (8.6-10.3); Carbon Dioxide 31 mEq/L (23-29); Chloride 105 mEq/L (98-107); Chol/HDL Ratio 6.8 (0-4.9); Cholesterol 149 mg/dL (< 200); Globulin 3.3 g/dL (2.4-3.5); Glucose 143 mg/dL (70-105); HDL Cholesterol 22 mg/dL (40-59); LDL Cholesterol,Calculated 66 mg/dL (0-99); Magnesium 2.2 mg/dL (1.6-2.6); Osmolality,Calculated 298 (280-300); Phosphorous 3.5 mg/dL (2.7-4.5); Potassium 3.6 mEq/L (3.5-5.1); Sodium 142 mEq/L (136-145); Total Protein 6.9 g/dL (6.4-8.9); Triglycerides 304 mg/dL (< 150); eGFR For African Americans > 60 (> 60); eGFR For Non-African Americans 55 (> 60)
[2020-01-12 03:50] LABS: Estimated Average Glucose 166 mg/dl
[2020-01-12] MEDS: Insulin LISPRO 300 UNITS/3 ML VIAL SQ SCH ×4 (05:42→22:58)
[2020-01-12] MEDS: *HR* Heparin 5,000 UNIT/ML VIAL SQ SCH ×3 (05:42→21:09)
[2020-01-12 12:33] LABS: Hepatitis B Surface Antigen Nonreactive (Nonreactive)
[2020-01-12 13:02] LABS: Hepatitis C Virus Antibody Nonreactive (Nonreactive)
[2020-01-12 13:03] LABS: Hepatitis A Antibody IgM Nonreactive (Nonreactive); Hepatitis B Core IgM Nonreactive (Nonreactive)
[2020-01-12] MEDS: amLODIPine 5 MG TABLET PO SCH (13:17)
[2020-01-12] MEDS ORDERED: NON-FORMULARY MEDICATION 1 EACH EACH (Pravastatin Sodium [Pravachol] 80 MG) PO SCH (21:00)
[2020-01-12] MEDS: Cefepime HCl 1,000 MG in Water for inj. (sterile) 10 ML IVP SCH (21:10)
[2020-01-12] MEDS: Pregabalin 75 MG CAPSULE PO SCH (21:10)
[2020-01-13] MEDS: Cefepime HCl 1,000 MG in Water for inj. (sterile) 10 ML IVP SCH ×2 (03:34→12:57)
[2020-01-13 03:52] LABS: Basophils % 0.5 %; Eosinophils # 0.6 K/mcL (0.0-0.6); Eosinophils % 7.2 %; Hemoglobin 11.5 g/dL (12.9-16.9); Immature Granulocytes % 0.4 % (0-4); Lymphocytes # 1.8 K/mcL (0.6-4.6); Lymphocytes % 22.4 %; Mean Corpuscular HGB Conc 31.9 g/dL (31.6-35.5); Mean Platelet Volume 10.7 fL (9.4-12.4); Monocytes # 0.8 K/mcL (0.0-1.3); Monocytes % 10.1 %; Neutrophils # 4.7 K/mcL (1.6-8.9); Platelet Count 196 K/mcL (140-400); Red Blood Count 3.71 M/mcL (4.19-5.50); Red Cell Distribution Width 15.6 % (11.5-14.5); Segmented Neutrophils % 59.4 %; White Blood Count 7.9 K/mcL (4.3-11.1)
[2020-01-13 04:15] LABS: Alanine Aminotransferase 92 Units/L (7-52); Albumin 3.4 g/dL (3.5-5.7); Albumin/Globulin Ratio 1.1 (1.1-2.2); Alkaline Phosphatase 65 Units/L (34-104); Aspartate Amino Transferase 110 Units/L (13-39); BUN/Creatinine Ratio 12 (6-26); Bilirubin,Total 0.5 mg/dL (0.3-1.0); Blood Urea Nitrogen 16 mg/dL (8-23); Calcium 9.1 mg/dL (8.6-10.3); Carbon Dioxide 30 mEq/L (23-29); Chloride 105 mEq/L (98-107); Globulin 3.1 g/dL (2.4-3.5); Glucose 140 mg/dL (70-105); Magnesium 2.2 mg/dL (1.6-2.6); Osmolality,Calculated 297 (280-300); Phosphorous 4.3 mg/dL (2.7-4.5); Potassium 3.5 mEq/L (3.5-5.1); Sodium 142 mEq/L (136-145); Total Protein 6.5 g/dL (6.4-8.9); eGFR For African Americans > 60 (> 60); eGFR For Non-African Americans 51 (> 60)
[2020-01-13] MEDS: *HR* Heparin 5,000 UNIT/ML VIAL SQ SCH ×3 (05:17→21:58)
[2020-01-13] MEDS: Insulin LISPRO 300 UNITS/3 ML VIAL SQ SCH ×3 (08:40→17:06)
[2020-01-13] MEDS: amLODIPine 5 MG TABLET PO SCH ×2 (08:41→09:24)
[2020-01-13] MEDS: Aspirin Enteric Coated 325 MG Tablet PO SCH (08:41)
[2020-01-13] MEDS: Pregabalin 75 MG CAPSULE PO SCH ×2 (08:41→21:58)
[2020-01-13] MEDS ORDERED: Furosemide 40 MG TABLET PO SCH (09:00)
[2020-01-13] MEDS: Ipratropium/Albuterol Neb 3 ML IH SCH ×3 (10:41→21:15)
[2020-01-14] MEDS ORDERED: Cefepime HCl 1,000 MG in Water for inj. (sterile) 10 ML IVP SCH
[2020-01-14] MEDS: Ipratropium/Albuterol Neb 3 ML IH SCH ×4 (03:35→21:19)
[2020-01-14] MEDS: *HR* Heparin 5,000 UNIT/ML VIAL SQ SCH ×3 (05:59→23:10)
[2020-01-14 06:18] LABS: Basophils # 0.1 K/mcL (0.0-0.2); Basophils % 0.6 %; Eosinophils # 0.5 K/mcL (0.0-0.6); Eosinophils % 5.6 %; Hematocrit 36.5 % (37.5-50.1); Hemoglobin 11.3 g/dL (12.9-16.9); Immature Granulocytes % 0.2 % (0-4); Lymphocytes # 1.4 K/mcL (0.6-4.6); Lymphocytes % 15.6 %; Mean Corpuscular Hemoglobin 30.5 pg (28.0-33.3); Mean Corpuscular Volume 98.6 fL (83.0-100.0); Mean Platelet Volume 10.9 fL (9.4-12.4); Monocytes # 0.7 K/mcL (0.0-1.3); Monocytes % 8.2 %; Neutrophils # 6.1 K/mcL (1.6-8.9); Platelet Count 205 K/mcL (140-400); Red Cell Distribution Width 15.8 % (11.5-14.5); Segmented Neutrophils % 69.8 %; White Blood Count 8.8 K/mcL (4.3-11.1)
[2020-01-14 06:39] LABS: Albumin 3.6 g/dL (3.5-5.7); Albumin/Globulin Ratio 1.2 (1.1-2.2); Bilirubin,Total 0.3 mg/dL (0.3-1.0); Calcium 9.3 mg/dL (8.6-10.3); Magnesium 2.2 mg/dL (1.6-2.6); Phosphorous 5.1 mg/dL (2.7-4.5); Potassium 3.5 mEq/L (3.5-5.1); Total Protein 6.6 g/dL (6.4-8.9)
[2020-01-14] MEDS: Pregabalin 75 MG CAPSULE PO SCH ×2 (08:48→23:09)
[2020-01-14] MEDS: amLODIPine 5 MG TABLET PO SCH (08:48)
[2020-01-14] MEDS: Insulin LISPRO 300 UNITS/3 ML VIAL SQ SCH ×3 (08:49→17:35)
[2020-01-14] MEDS: Aspirin Enteric Coated 325 MG Tablet PO SCH (08:49)
[2020-01-15] MEDS: Ipratropium/Albuterol Neb 3 ML IH SCH ×3 (03:53→15:17)
[2020-01-15 05:03] LABS: Basophils # 0.1 K/mcL (0.0-0.2); Basophils % 0.5 %; Eosinophils # 0.6 K/mcL (0.0-0.6); Eosinophils % 6.9 %; Hematocrit 37.8 % (37.5-50.1); Hemoglobin 12.1 g/dL (12.9-16.9); Immature Granulocytes % 0.3 % (0-4); Lymphocytes # 2.5 K/mcL (0.6-4.6); Lymphocytes % 26.4 %; Mean Corpuscular Hemoglobin 31.1 pg (28.0-33.3); Mean Corpuscular Volume 97.2 fL (83.0-100.0); Mean Platelet Volume 10.6 fL (9.4-12.4); Monocytes # 0.7 K/mcL (0.0-1.3); Monocytes % 7.9 %; Neutrophils # 5.4 K/mcL (1.6-8.9); Platelet Count 222 K/mcL (140-400); Red Blood Count 3.89 M/mcL (4.19-5.50); Red Cell Distribution Width 15.7 % (11.5-14.5); White Blood Count 9.3 K/mcL (4.3-11.1)
[2020-01-15 05:24] LABS: Calcium 9.9 mg/dL (8.6-10.3); Magnesium 2.2 mg/dL (1.6-2.6); Phosphorous 3.8 mg/dL (2.7-4.5); Potassium 3.6 mEq/L (3.5-5.1)
[2020-01-15] MEDS: *HR* Heparin 5,000 UNIT/ML VIAL SQ SCH ×2 (06:27→13:43)
[2020-01-15] MEDS: Aspirin Enteric Coated 325 MG Tablet PO SCH (08:21)
[2020-01-15] MEDS: Insulin LISPRO 300 UNITS/3 ML VIAL SQ SCH ×2 (08:22→12:21)
[2020-01-15] MEDS: Pregabalin 75 MG CAPSULE PO SCH (08:22)
[2020-01-15] MEDS: amLODIPine 5 MG TABLET PO SCH (08:22)
[2020-01-15 14:56] VITALS: BP 138/75
== END 2020-01-15 15:34 | disposition other institution (70) ==
LOC: 3ANU → SUATTDRO 15:11
PROVIDERS: ADMIT Student in an Organized Health Care Education/Training Program; ATTEND Internal Medicine

== ENCOUNTER 2021-01-21 01:47 | Inpatient (IN) ==
[2021-01-21] MEDS ORDERED: Ondansetron 4 MG/2 ML VIAL IVP PRN (03:39)
[2021-01-21] MEDS ORDERED: Naloxone 0.4 MG/ML INJ IVP PRN (03:39)
[2021-01-21] MEDS ORDERED: *HR* Heparin 5,000 UNIT/ML VIAL IVP PRN (03:42)
[2021-01-21] MEDS ORDERED: Perflutren Lipid Microsphere 1.3 ML in 0.9 % Sodium Chloride 8.7 ML IVP PRN (03:43)
[2021-01-21] MEDS ORDERED: D5% in Water 1,000 ML IVC PRN (03:45)
[2021-01-21] MEDS ORDERED: *HR* Dextrose 50 % in Water (Vial) 50 ML VIAL IVP PRN (03:45)
[2021-01-21] MEDS ORDERED: Dextrose Gel 15 GM/37.5 ML TUBE PO PRN ×2 (03:45)
[2021-01-21] MEDS: Insulin LISPRO 300 UNITS/3 ML VIAL SUBQ SCH ×5 (05:30→20:25)
[2021-01-21] MEDS: Heparin 25,000UNIT/250ML 1/2NS 25,000 UNIT/250 ML IV.SOLN IVC SCH (05:45)
[2021-01-21 06:00] LABS: Basophils # 0.1 K/mcL (0.0-0.2); Basophils % 0.4 %; Eosinophils # 0.2 K/mcL (0.0-0.6); Eosinophils % 1.7 %; Hematocrit 35.8 % (37.5-50.1); Hemoglobin 10.8 g/dL (12.9-16.9); Immature Granulocytes % 0.5 % (0-4); Lymphocytes # 1.8 K/mcL (0.6-4.6); Lymphocytes % 15.5 %; Mean Corpuscular HGB Conc 30.2 g/dL (31.6-35.5); Mean Corpuscular Hemoglobin 31.4 pg (28.0-33.3); Mean Corpuscular Volume 104.1 fL (83.0-100.0); Monocytes # 0.7 K/mcL (0.0-1.3); Monocytes % 6.2 %; Neutrophils # 8.7 K/mcL (1.6-8.9); Platelet Count 221 K/mcL (140-400); Red Blood Count 3.44 M/mcL (4.19-5.50); Red Cell Distribution Width 15.9 % (11.5-14.5); Segmented Neutrophils % 75.7 %; White Blood Count 11.5 K/mcL (4.3-11.1)
[2021-01-21 06:21] LABS: BUN/Creatinine Ratio 18 (6-26); Blood Urea Nitrogen 22 mg/dL (8-23); Calcium 8.9 mg/dL (8.6-10.3); Carbon Dioxide 27 mEq/L (23-29); Chloride 110 mEq/L (98-107); Chol/HDL Ratio 4.6 (0-4.9); Cholesterol 138 mg/dL (< 200); Glucose 168 mg/dL (70-105); HDL Cholesterol 30 mg/dL (40-59); LDL Cholesterol,Calculated 62 mg/dL (< 100); Magnesium 2.1 mg/dL (1.6-2.6); Osmolality,Calculated 305 (280-300); Potassium 4.4 mEq/L (3.5-5.1); Sodium 144 mEq/L (136-145); Triglycerides 230 mg/dL (< 150); eGFR For African Americans > 60 (> 60); eGFR For Non-African Americans 59 (> 60)
[2021-01-21 06:36] LABS: Bilirubin,Urine Negative (Negative); Blood,Urine Negative (Negative); Clarity,Urine Clear (Clear); Color,Urine Light-Yellow (Yellow); Glucose,Urine (UA) Normal (Normal); Ketones,Urine Negative (Negative); Leukocyte Esterase,Urine Moderate (Negative); Mucus,Urine Few per lpf (None-Few); Nitrite,Urine Positive (Negative); PH,Urine 6.5 pH Units (5.0-8.0); Protein,Urine Trace mg/dL (Neg-Trace); Specific Gravity,Urine 1.027 (1.010-1.025); Urobilinogen,Urine Normal (Normal); WBC,Urine 30-50 per hpf (0-3)
[2021-01-21] MEDS: cefTRIAXone 1,000 MG in Water for inj. (sterile) 10 ML IVP SCH (10:51)
[2021-01-21] MEDS: Furosemide 40 MG/4 ML VIAL IVP SCH ×2 (10:53→20:25)
[2021-01-21] MEDS: Ipratropium/Albuterol Neb 3 ML IH SCH ×3 (15:12→22:30)
[2021-01-21] MEDS: Aspirin Enteric Coated 325 MG Tablet PO SCH (16:30)
[2021-01-21] MEDS: NIFEdipine XL (24 HR) 60 MG TAB.ER.24 PO SCH (16:30)
[2021-01-21] MEDS: carvediloL 6.25 MG TABLET PO SCH (16:30)
[2021-01-21] MEDS: *HR* Heparin 5,000 UNIT/ML VIAL IVP PRN (16:31)
[2021-01-21] MEDS: Pregabalin 75 MG CAPSULE PO SCH (20:25)
[2021-01-22] MEDS: Ipratropium/Albuterol Neb 3 ML IH SCH ×4 (03:24→22:13)
[2021-01-22] MEDS: Heparin 25,000UNIT/250ML 1/2NS 25,000 UNIT/250 ML IV.SOLN IVC SCH ×2 (03:59→21:55)
[2021-01-22 07:13] LABS: Basophils % 0.4 %; Eosinophils # 0.3 K/mcL (0.0-0.6); Eosinophils % 2.2 %; Hematocrit 33.2 % (37.5-50.1); Hemoglobin 10.4 g/dL (12.9-16.9); Immature Granulocytes % 0.4 % (0-4); Lymphocytes # 1.7 K/mcL (0.6-4.6); Mean Corpuscular HGB Conc 31.3 g/dL (31.6-35.5); Mean Corpuscular Hemoglobin 32.5 pg (28.0-33.3); Mean Corpuscular Volume 103.8 fL (83.0-100.0); Mean Platelet Volume 11.2 fL (9.4-12.4); Monocytes # 0.8 K/mcL (0.0-1.3); Neutrophils # 8.5 K/mcL (1.6-8.9); Platelet Count 244 K/mcL (140-400); Red Cell Distribution Width 15.9 % (11.5-14.5); White Blood Count 11.4 K/mcL (4.3-11.1)
[2021-01-22 07:20] LABS: Heparin anti-factor XA UFH 0.19 IU/mL (0.30-0.70)
[2021-01-22 07:29] LABS: BUN/Creatinine Ratio 18 (6-26); Blood Urea Nitrogen 22 mg/dL (8-23); Calcium 8.9 mg/dL (8.6-10.3); Carbon Dioxide 27 mEq/L (23-29); Chloride 103 mEq/L (98-107); Glucose 188 mg/dL (70-105); Osmolality,Calculated 300 (280-300); Phosphorous 3.2 mg/dL (2.7-4.5); Potassium 3.7 mEq/L (3.5-5.1); Sodium 141 mEq/L (136-145); eGFR For African Americans > 60 (> 60); eGFR For Non-African Americans 57 (> 60)
[2021-01-22 08:00] LABS: INR 1.1; Prothrombin Time 12.9 Seconds (9.4-12.1)
[2021-01-22] MEDS: NIFEdipine XL (24 HR) 60 MG TAB.ER.24 PO SCH (08:09)
[2021-01-22] MEDS: Pregabalin 75 MG CAPSULE PO SCH ×2 (08:10→21:45)
[2021-01-22] MEDS: Aspirin Enteric Coated 325 MG Tablet PO SCH (08:10)
[2021-01-22] MEDS: Multivit/Ca/Min/Fe/FA 1 TAB TABLET PO SCH (08:10)
[2021-01-22] MEDS: carvediloL 6.25 MG TABLET PO SCH ×2 (08:11→17:07)
[2021-01-22] MEDS: Furosemide 40 MG/4 ML VIAL IVP SCH ×2 (08:11→21:46)
[2021-01-22] MEDS: cefTRIAXone 1,000 MG in Water for inj. (sterile) 10 ML IVP SCH (08:12)
[2021-01-22] MEDS: *HR* Heparin 5,000 UNIT/ML VIAL IVP PRN (08:23)
[2021-01-22] MEDS: Insulin LISPRO 300 UNITS/3 ML VIAL SUBQ SCH ×4 (08:35→20:24)
[2021-01-22 16:44] LABS: Estimated Average Glucose 140 mg/dl; Hemoglobin A1C 6.5 %
[2021-01-23] MEDS: Ipratropium/Albuterol Neb 3 ML IH SCH ×4 (03:21→21:57)
[2021-01-23] MEDS: Pregabalin 75 MG CAPSULE PO SCH ×2 (08:04→21:27)
[2021-01-23] MEDS: Multivit/Ca/Min/Fe/FA 1 TAB TABLET PO SCH (08:04)
[2021-01-23] MEDS: carvediloL 6.25 MG TABLET PO SCH ×2 (08:04→16:39)
[2021-01-23] MEDS: Aspirin Enteric Coated 325 MG Tablet PO SCH (08:04)
[2021-01-23] MEDS: NIFEdipine XL (24 HR) 60 MG TAB.ER.24 PO SCH (08:04)
[2021-01-23] MEDS: Furosemide 40 MG/4 ML VIAL IVP SCH ×3 (08:05→21:27)
[2021-01-23] MEDS: cefTRIAXone 1,000 MG in Water for inj. (sterile) 10 ML IVP SCH (08:08)
[2021-01-23] MEDS: Insulin LISPRO 300 UNITS/3 ML VIAL SUBQ SCH ×4 (08:12→21:20)
[2021-01-23 11:32] LABS: Hematocrit 32.5 % (37.5-50.1); Hemoglobin 10.1 g/dL (12.9-16.9); Mean Corpuscular HGB Conc 31.1 g/dL (31.6-35.5); Mean Corpuscular Hemoglobin 32.3 pg (28.0-33.3); Mean Corpuscular Volume 103.8 fL (83.0-100.0); Mean Platelet Volume 11.3 fL (9.4-12.4); Platelet Count 218 K/mcL (140-400); Red Blood Count 3.13 M/mcL (4.19-5.50); Red Cell Distribution Width 16.1 % (11.5-14.5); White Blood Count 12.3 K/mcL (4.3-11.1)
[2021-01-23] MEDS ORDERED: metOLazone 5 MG TABLET PO ONE (11:38)
[2021-01-23 11:49] LABS: Calcium 9.2 mg/dL (8.6-10.3); Magnesium 2.2 mg/dL (1.6-2.6); Potassium 4.1 mEq/L (3.5-5.1)
[2021-01-23] MEDS: *HR* Heparin 5,000 UNIT/ML VIAL SQ SCH (16:40)
[2021-01-24] MEDS: Ipratropium/Albuterol Neb 3 ML IH SCH ×4 (03:56→21:39)
[2021-01-24] MEDS: *HR* Heparin 5,000 UNIT/ML VIAL SQ SCH ×2 (05:54→17:45)
[2021-01-24] MEDS: Insulin LISPRO 300 UNITS/3 ML VIAL SUBQ SCH ×4 (07:35→21:10)
[2021-01-24 08:06] LABS: Hematocrit 31.8 % (37.5-50.1); Mean Corpuscular HGB Conc 31.4 g/dL (31.6-35.5); Mean Corpuscular Hemoglobin 32.7 pg (28.0-33.3); Mean Corpuscular Volume 103.9 fL (83.0-100.0); Mean Platelet Volume 11.6 fL (9.4-12.4); Platelet Count 232 K/mcL (140-400); Red Blood Count 3.06 M/mcL (4.19-5.50); Red Cell Distribution Width 15.9 % (11.5-14.5); White Blood Count 10.4 K/mcL (4.3-11.1)
[2021-01-24] MEDS: Furosemide 40 MG/4 ML VIAL IVP SCH (08:54)
[2021-01-24] MEDS: Pregabalin 75 MG CAPSULE PO SCH ×2 (09:05→21:08)
[2021-01-24] MEDS: carvediloL 6.25 MG TABLET PO SCH ×2 (09:06→17:45)
[2021-01-24] MEDS: Aspirin Enteric Coated 325 MG Tablet PO SCH (09:06)
[2021-01-24] MEDS: NIFEdipine XL (24 HR) 60 MG TAB.ER.24 PO SCH (09:06)
[2021-01-24] MEDS: Multivit/Ca/Min/Fe/FA 1 TAB TABLET PO SCH (09:06)
[2021-01-24 09:09] LABS: Calcium 9.4 mg/dL (8.6-10.3); Magnesium 2.3 mg/dL (1.6-2.6); Potassium 4.1 mEq/L (3.5-5.1)
[2021-01-24] MEDS: cefTRIAXone 1,000 MG in Water for inj. (sterile) 10 ML IVP SCH (10:12)
[2021-01-24] MEDS ORDERED: Furosemide 40 MG/4 ML VIAL IVP SCH (21:00)
[2021-01-24 22:20] LABS: Protein/Creatinine Ratio,Urine 0.2 mg/mg (0.00-0.20); Sodium, Urine 73.6 mEq/L
[2021-01-24 22:25] LABS: Bacteria,Urine Few per hpf (None-Few); Bilirubin,Urine Negative (Negative); Blood,Urine Negative (Negative); Clarity,Urine Clear (Clear); Color,Urine Light-Yellow (Yellow); Glucose,Urine (UA) Normal (Normal); Ketones,Urine Negative (Negative); Leukocyte Esterase,Urine Large (Negative); Mucus,Urine Few per lpf (None-Few); Nitrite,Urine Positive (Negative); PH,Urine 6.5 pH Units (5.0-8.0); Protein,Urine Negative (Neg-Trace); RBC,Urine 0-3 per hpf (0-3); Specific Gravity,Urine 1.014 (1.010-1.025); Squamous Epithelial Cell,Urine Few per hpf (None-Few); Urobilinogen,Urine Normal (Normal); WBC,Urine TNTC per hpf (0-3)
[2021-01-25] MEDS: Ipratropium/Albuterol Neb 3 ML IH SCH ×4 (03:33→23:04)
[2021-01-25] MEDS: *HR* Heparin 5,000 UNIT/ML VIAL SQ SCH ×2 (06:21→16:59)
[2021-01-25] MEDS: Insulin LISPRO 300 UNITS/3 ML VIAL SUBQ SCH ×4 (08:16→20:24)
[2021-01-25 09:14] LABS: Calcium 9.4 mg/dL (8.6-10.3); Potassium 4.1 mEq/L (3.5-5.1); Uric Acid 10.7 mg/dL (2.3-7.6)
[2021-01-25] MEDS: Pregabalin 75 MG CAPSULE PO SCH ×2 (09:16→20:25)
[2021-01-25] MEDS: NIFEdipine XL (24 HR) 60 MG TAB.ER.24 PO SCH (09:16)
[2021-01-25] MEDS: Multivit/Ca/Min/Fe/FA 1 TAB TABLET PO SCH (09:16)
[2021-01-25] MEDS: Aspirin Enteric Coated 325 MG Tablet PO SCH (09:16)
[2021-01-25] MEDS: cefTRIAXone 1,000 MG in Water for inj. (sterile) 10 ML IVP SCH (09:16)
[2021-01-25] MEDS: carvediloL 6.25 MG TABLET PO SCH ×2 (09:16→16:59)
[2021-01-25 09:54] LABS: Hepatitis B Surface Antigen Nonreactive (Nonreactive)
[2021-01-25 10:22] LABS: Hepatitis B Core IgM Nonreactive (Nonreactive)
[2021-01-25 10:23] LABS: Hepatitis C Virus Antibody Nonreactive (Nonreactive)
[2021-01-25 10:24] LABS: Hepatitis A Antibody IgM Nonreactive (Nonreactive)
[2021-01-26] MEDS: Ipratropium/Albuterol Neb 3 ML IH SCH ×4 (04:00→22:16)
[2021-01-26] MEDS: *HR* Heparin 5,000 UNIT/ML VIAL SQ SCH ×2 (04:44→16:17)
[2021-01-26] MEDS: Insulin LISPRO 300 UNITS/3 ML VIAL SUBQ SCH ×4 (07:48→20:21)
[2021-01-26] MEDS: Pregabalin 75 MG CAPSULE PO SCH ×2 (07:53→20:36)
[2021-01-26] MEDS: NIFEdipine XL (24 HR) 60 MG TAB.ER.24 PO SCH (07:53)
[2021-01-26] MEDS: carvediloL 6.25 MG TABLET PO SCH ×2 (07:54→16:17)
[2021-01-26] MEDS: Multivit/Ca/Min/Fe/FA 1 TAB TABLET PO SCH (07:54)
[2021-01-26] MEDS: cefTRIAXone 1,000 MG in Water for inj. (sterile) 10 ML IVP SCH (07:54)
[2021-01-26] MEDS: Aspirin Enteric Coated 325 MG Tablet PO SCH (07:54)
[2021-01-26 08:54] LABS: Basophils # 0.1 K/mcL (0.0-0.2); Basophils % 0.5 %; Eosinophils # 0.6 K/mcL (0.0-0.6); Eosinophils % 6.5 %; Hematocrit 35.5 % (37.5-50.1); Hemoglobin 11.2 g/dL (12.9-16.9); Immature Granulocytes % 0.7 % (0-4); Lymphocytes # 1.5 K/mcL (0.6-4.6); Mean Corpuscular HGB Conc 31.5 g/dL (31.6-35.5); Mean Corpuscular Hemoglobin 32.6 pg (28.0-33.3); Mean Corpuscular Volume 103.2 fL (83.0-100.0); Mean Platelet Volume 11.5 fL (9.4-12.4); Monocytes # 0.7 K/mcL (0.0-1.3); Monocytes % 7.7 %; Neutrophils # 6.3 K/mcL (1.6-8.9); Nucleated Red Blood Cells 0.2 /100 WBC (0); Platelet Count 256 K/mcL (140-400); Red Blood Count 3.44 M/mcL (4.19-5.50); Red Cell Distribution Width 15.6 % (11.5-14.5); Segmented Neutrophils % 68.6 %; White Blood Count 9.1 K/mcL (4.3-11.1)
[2021-01-26 09:12] LABS: Calcium 9.9 mg/dL (8.6-10.3); Potassium 4.1 mEq/L (3.5-5.1)
[2021-01-26] MEDS: 0.9 % Sodium Chloride 1,000 ML IVC SCH (22:39)
[2021-01-27 00:52] LABS: Basophils % 0.5 %; Eosinophils % 7.1 %; Mean Corpuscular Hemoglobin 32.2 pg (28.0-33.3); Red Cell Distribution Width 15.3 % (11.5-14.5)
[2021-01-27 00:54] LABS: Basophils # 0.1 K/mcL (0.0-0.2); Eosinophils # 0.7 K/mcL (0.0-0.6); Hematocrit 34.4 % (37.5-50.1); Hemoglobin 11.1 g/dL (12.9-16.9); Immature Granulocytes % 0.8 % (0-4); Immature Platelets 8.3 % (1.1-6.1); Lymphocytes # 1.6 K/mcL (0.6-4.6); Lymphocytes % 17.2 %; Mean Corpuscular HGB Conc 32.3 g/dL (31.6-35.5); Mean Corpuscular Volume 99.7 fL (83.0-100.0); Mean Platelet Volume 11.9 fL (9.4-12.4); Monocytes # 0.8 K/mcL (0.0-1.3); Monocytes % 8.3 %; Neutrophils # 6.3 K/mcL (1.6-8.9); Platelet Count 221 K/mcL (140-400); Red Blood Count 3.45 M/mcL (4.19-5.50); Segmented Neutrophils % 66.1 %; White Blood Count 9.5 K/mcL (4.3-11.1)
[2021-01-27 01:04] LABS: Calcium 9.4 mg/dL (8.6-10.3); Potassium 4.8 mEq/L (3.5-5.1)
[2021-01-27] MEDS: Ipratropium/Albuterol Neb 3 ML IH SCH ×4 (03:39→22:35)
[2021-01-27] MEDS: *HR* Heparin 5,000 UNIT/ML VIAL SQ SCH ×2 (04:54→16:28)
[2021-01-27] MEDS: NIFEdipine XL (24 HR) 60 MG TAB.ER.24 PO SCH (08:34)
[2021-01-27] MEDS: Insulin LISPRO 300 UNITS/3 ML VIAL SUBQ SCH ×4 (08:34→20:55)
[2021-01-27] MEDS: Aspirin Enteric Coated 325 MG Tablet PO SCH (08:34)
[2021-01-27] MEDS: carvediloL 6.25 MG TABLET PO SCH ×2 (08:35→16:27)
[2021-01-27] MEDS: Pregabalin 75 MG CAPSULE PO SCH ×2 (08:35→20:55)
[2021-01-27] MEDS: Multivit/Ca/Min/Fe/FA 1 TAB TABLET PO SCH (08:35)
[2021-01-27] MEDS ORDERED: Heparin 1,000 UNITS/500 mL 500 ML ONE (13:27)
[2021-01-27] MEDS ORDERED: *HR* Heparin 10,000 UNIT/10 ML VIAL ONE (13:27)
[2021-01-27] MEDS ORDERED: ISOVUE-370 200 ML INFUS..BTL ONE (13:27)
[2021-01-27] MEDS ORDERED: Nitroglycerin 1,000 MCG/5 ML VIAL IV ONE (13:27)
[2021-01-27] MEDS ORDERED: 0.9 % Sodium Chloride 2,000 ML ONE (13:27)
[2021-01-27] MEDS ORDERED: *HR* FentaNYL (PF) 100 MCG/2 ML VIAL ONE (13:39)
[2021-01-27] MEDS ORDERED: *HR* Midazolam HCl 2 MG/2 ML VIAL ONE (13:39)
[2021-01-27] MEDS ORDERED: 0.9 % Sodium Chloride 250 ML IVC SCH (15:15)
[2021-01-28] MEDS: Ipratropium/Albuterol Neb 3 ML IH SCH ×2 (04:16→10:52)
[2021-01-28] MEDS: *HR* Heparin 5,000 UNIT/ML VIAL SQ SCH (05:50)
[2021-01-28 05:51] LABS: Basophils # 0.1 K/mcL (0.0-0.2); Basophils % 0.7 %; Eosinophils # 0.7 K/mcL (0.0-0.6); Eosinophils % 7.3 %; Hematocrit 33.9 % (37.5-50.1); Hemoglobin 10.6 g/dL (12.9-16.9); Immature Granulocytes % 0.8 % (0-4); Lymphocytes # 1.8 K/mcL (0.6-4.6); Lymphocytes % 18.8 %; Mean Corpuscular HGB Conc 31.3 g/dL (31.6-35.5); Mean Corpuscular Hemoglobin 32.4 pg (28.0-33.3); Mean Corpuscular Volume 103.7 fL (83.0-100.0); Mean Platelet Volume 11.4 fL (9.4-12.4); Monocytes # 0.9 K/mcL (0.0-1.3); Monocytes % 8.8 %; Neutrophils # 6.2 K/mcL (1.6-8.9); Platelet Count 241 K/mcL (140-400); Red Blood Count 3.27 M/mcL (4.19-5.50); Red Cell Distribution Width 15.1 % (11.5-14.5); Segmented Neutrophils % 63.6 %; White Blood Count 9.7 K/mcL (4.3-11.1)
[2021-01-28] MEDS: 0.9 % Sodium Chloride 1,000 ML IVC SCH (05:52)
[2021-01-28 05:57] LABS: BUN/Creatinine Ratio 43 (6-26); Blood Urea Nitrogen 53 mg/dL (8-23); Calcium 9.1 mg/dL (8.6-10.3); Carbon Dioxide 27 mEq/L (23-29); Chloride 105 mEq/L (98-107); Glucose 170 mg/dL (70-105); Osmolality,Calculated 308 (280-300); Potassium 5.1 mEq/L (3.5-5.1); Sodium 140 mEq/L (136-145); eGFR For African Americans > 60 (> 60); eGFR For Non-African Americans 57 (> 60)
[2021-01-28 07:19] VITALS: BP 116/72
[2021-01-28] MEDS: carvediloL 6.25 MG TABLET PO SCH (08:11)
[2021-01-28] MEDS: Insulin LISPRO 300 UNITS/3 ML VIAL SUBQ SCH (08:12)
[2021-01-28] MEDS: Aspirin Enteric Coated 325 MG Tablet PO SCH (08:12)
[2021-01-28] MEDS: Pregabalin 75 MG CAPSULE PO SCH (08:12)
[2021-01-28] MEDS: NIFEdipine XL (24 HR) 60 MG TAB.ER.24 PO SCH (08:12)
[2021-01-28] MEDS: Multivit/Ca/Min/Fe/FA 1 TAB TABLET PO SCH (08:12)
[2021-01-28] MEDS ORDERED: Furosemide 40 MG TABLET PO SCH (11:00)
[2021-01-28 11:32] LABS: Adenovirus Not Detected (Not Detect); Bordetella Pertussis Not Detected (Not Detect); Chlamydophila pneumoniae Not Detected (Not Detect); Coronavirus 229E Not Detected (Not Detect); Coronavirus HKU1 Not Detected (Not Detect); Coronavirus NL63 Not Detected (Not Detect); Coronavirus OC43 Not Detected (Not Detect); Human Metapneumovirus Not Detected (Not Detect); Human Rhinovirus/Enterovirus Not Detected (Not Detect); Influenza A Subtype 2009 H1 Not Detected (Not Detect); Influenza B Not Detected (Not Detect); Mycoplasma pneumoniae Not Detected (Not Detect); Parainfluenza Virus 1 Not Detected (Not Detect); Parainfluenza Virus 2 Not Detected (Not Detect); Parainfluenza Virus 3 Not Detected (Not Detect); Parainfluenza Virus 4 Not Detected (Not Detect); Respiratory Syncytial Virus Not Detected (Not Detect); SARS-CoV-2 Not Detected (Not Detect)
[2021-01-29] MEDS ORDERED: Aspirin 81 MG TAB.CHEW PO SCH (09:00)
== END 2021-01-28 14:01 | disposition other institution (70) | DRG 280 ==
LOC: 3BNU → SUATTDRO 03:24
PROVIDERS: ADMIT Student in an Organized Health Care Education/Training Program; ATTEND Internal Medicine

== ENCOUNTER 2021-01-29 03:30 | Observation (INO) ==
[2021-01-29] MEDS ORDERED: Ondansetron 4 MG/2 ML VIAL IVP PRN (05:08)
[2021-01-29] MEDS ORDERED: Naloxone 0.4 MG/ML INJ IVP PRN (05:08)
[2021-01-29] MEDS ORDERED: *HR* Dextrose 50 % in Water (Vial) 50 ML VIAL IVP PRN (05:11)
[2021-01-29] MEDS ORDERED: D5% in Water 1,000 ML IVC PRN (05:11)
[2021-01-29] MEDS ORDERED: Dextrose Gel 15 GM/37.5 ML TUBE PO PRN ×2 (05:11)
[2021-01-29] MEDS: Insulin LISPRO 300 UNITS/3 ML VIAL SUBQ SCH ×3 (05:53→17:48)
[2021-01-29 06:16] LABS: Activated Partial Thrombo Time 33.5 Seconds (26.0-36.0)
[2021-01-29 06:24] LABS: Albumin/Globulin Ratio 1.1 (1.1-2.2); Bilirubin,Total 0.3 mg/dL (0.3-1.0); Calcium 9.4 mg/dL (8.6-10.3); Globulin 3.6 g/dL (2.4-3.5); Magnesium 2.4 mg/dL (1.6-2.6); Phosphorous 3.4 mg/dL (2.7-4.5); Potassium 4.4 mEq/L (3.5-5.1); Total Protein 7.6 g/dL (6.4-8.9)
[2021-01-29 06:43] LABS: Basophils # 0.1 K/mcL (0.0-0.2); Basophils % 0.4 %; Eosinophils # 0.5 K/mcL (0.0-0.6); Eosinophils % 3.5 %; Hematocrit 34.4 % (37.5-50.1); Hemoglobin 10.6 g/dL (12.9-16.9); Immature Granulocytes % 0.6 % (0-4); Lymphocytes # 1.3 K/mcL (0.6-4.6); Lymphocytes % 9.2 %; Mean Corpuscular HGB Conc 30.8 g/dL (31.6-35.5); Mean Corpuscular Hemoglobin 32.3 pg (28.0-33.3); Mean Corpuscular Volume 104.9 fL (83.0-100.0); Mean Platelet Volume 11.5 fL (9.4-12.4); Monocytes % 6.6 %; Neutrophils # 11.6 K/mcL (1.6-8.9); Platelet Count 268 K/mcL (140-400); Red Blood Count 3.28 M/mcL (4.19-5.50); Red Cell Distribution Width 15.2 % (11.5-14.5); Segmented Neutrophils % 79.7 %; White Blood Count 14.5 K/mcL (4.3-11.1)
[2021-01-29] MEDS: Pantoprazole 40 MG VIAL IVP SCH ×2 (08:28→17:48)
[2021-01-29] MEDS: Sennosides/Docusate Sodium TABLET PO SCH ×2 (14:45→20:09)
[2021-01-29] MEDS: polyethylene glycoL 3350 17 GM POWD.PACK PO SCH (14:45)
[2021-01-29] MEDS: Ipratropium/Albuterol Neb 3 ML IH SCH ×2 (15:42→22:35)
[2021-01-29] MEDS: carvediloL 6.25 MG TABLET PO SCH (17:48)
[2021-01-29] MEDS: Pregabalin 75 MG CAPSULE PO SCH (20:09)
[2021-01-30] MEDS: Insulin LISPRO 300 UNITS/3 ML VIAL SUBQ SCH ×5 (00:38→23:43)
[2021-01-30] MEDS: Ipratropium/Albuterol Neb 3 ML IH SCH ×4 (04:08→22:26)
[2021-01-30] MEDS: Pantoprazole 40 MG VIAL IVP SCH (05:43)
[2021-01-30 06:15] LABS: Basophils # 0.1 K/mcL (0.0-0.2); Basophils % 0.5 %; Eosinophils # 0.6 K/mcL (0.0-0.6); Eosinophils % 5.5 %; Hemoglobin 9.8 g/dL (12.9-16.9); Immature Granulocytes % 0.6 % (0-4); Mean Corpuscular HGB Conc 31.6 g/dL (31.6-35.5); Mean Corpuscular Hemoglobin 32.7 pg (28.0-33.3); Mean Corpuscular Volume 103.3 fL (83.0-100.0); Mean Platelet Volume 11.6 fL (9.4-12.4); Monocytes # 0.9 K/mcL (0.0-1.3); Monocytes % 8.4 %; Neutrophils # 6.8 K/mcL (1.6-8.9); Platelet Count 208 K/mcL (140-400); Red Cell Distribution Width 15.2 % (11.5-14.5); White Blood Count 10.3 K/mcL (4.3-11.1)
[2021-01-30 06:28] LABS: BUN/Creatinine Ratio 37 (6-26); Blood Urea Nitrogen 48 mg/dL (8-23); Calcium 8.9 mg/dL (8.6-10.3); Carbon Dioxide 27 mEq/L (23-29); Chloride 105 mEq/L (98-107); Glucose 135 mg/dL (70-105); Osmolality,Calculated 303 (280-300); Potassium 5.3 mEq/L (3.5-5.1); Sodium 139 mEq/L (136-145); eGFR For African Americans > 60 (> 60); eGFR For Non-African Americans 54 (> 60)
[2021-01-30] MEDS: polyethylene glycoL 3350 17 GM POWD.PACK PO SCH (08:51)
[2021-01-30] MEDS: NIFEdipine XL (24 HR) 60 MG TAB.ER.24 PO SCH (08:57)
[2021-01-30] MEDS: Furosemide 40 MG TABLET PO SCH (08:57)
[2021-01-30] MEDS: carvediloL 6.25 MG TABLET PO SCH ×2 (08:57→17:39)
[2021-01-30] MEDS: Pregabalin 75 MG CAPSULE PO SCH ×2 (08:57→20:28)
[2021-01-30] MEDS: Sennosides/Docusate Sodium TABLET PO SCH ×2 (08:57→20:27)
[2021-01-30] MEDS: Multivit/Ca/Min/Fe/FA 1 TAB TABLET PO SCH (08:57)
[2021-01-30] MEDS: Ringers Solution, Lactated 1,000 ML IVC SCH (09:35)
[2021-01-30] MEDS ORDERED: Lidocaine -MPF 2% 2 ML VIAL ONE (09:49)
[2021-01-30] MEDS ORDERED: *HR* Propofol 200 MG/20 ML VIAL IVP ONE (09:49)
[2021-01-30] MEDS: Pantoprazole 40 MG in 0.9 % Sodium Chloride Mini Bag 100 ML IVC SCH ×3 (13:20→22:53)
[2021-01-31] MEDS: Ipratropium/Albuterol Neb 3 ML IH SCH ×4 (03:57→22:31)
[2021-01-31] MEDS: Pantoprazole 40 MG in 0.9 % Sodium Chloride Mini Bag 100 ML IVC SCH ×3 (04:00→15:13)
[2021-01-31 05:53] LABS: Basophils # 0.1 K/mcL (0.0-0.2); Basophils % 0.6 %; Eosinophils # 0.6 K/mcL (0.0-0.6); Hematocrit 28.4 % (37.5-50.1); Hemoglobin 9.1 g/dL (12.9-16.9); Immature Granulocytes % 0.5 % (0-4); Lymphocytes # 1.9 K/mcL (0.6-4.6); Lymphocytes % 21.4 %; Mean Corpuscular Hemoglobin 32.7 pg (28.0-33.3); Mean Corpuscular Volume 102.2 fL (83.0-100.0); Mean Platelet Volume 11.5 fL (9.4-12.4); Monocytes # 0.8 K/mcL (0.0-1.3); Monocytes % 8.6 %; Neutrophils # 5.4 K/mcL (1.6-8.9); Platelet Count 221 K/mcL (140-400); Red Blood Count 2.78 M/mcL (4.19-5.50); Red Cell Distribution Width 14.9 % (11.5-14.5); Segmented Neutrophils % 61.9 %; White Blood Count 8.7 K/mcL (4.3-11.1)
[2021-01-31 06:11] LABS: BUN/Creatinine Ratio 32 (6-26); Blood Urea Nitrogen 39 mg/dL (8-23); Calcium 8.9 mg/dL (8.6-10.3); Carbon Dioxide 30 mEq/L (23-29); Chloride 102 mEq/L (98-107); Glucose 101 mg/dL (70-105); Osmolality,Calculated 296 (280-300); Potassium 4.1 mEq/L (3.5-5.1); Sodium 138 mEq/L (136-145); eGFR For African Americans > 60 (> 60); eGFR For Non-African Americans 57 (> 60)
[2021-01-31] MEDS: Insulin LISPRO 300 UNITS/3 ML VIAL SUBQ SCH ×5 (07:50→20:43)
[2021-01-31] MEDS: Sennosides/Docusate Sodium TABLET PO SCH ×2 (09:53→20:42)
[2021-01-31] MEDS: Pregabalin 75 MG CAPSULE PO SCH ×2 (09:53→20:43)
[2021-01-31] MEDS: Furosemide 40 MG TABLET PO SCH (09:54)
[2021-01-31] MEDS: Multivit/Ca/Min/Fe/FA 1 TAB TABLET PO SCH (09:54)
[2021-01-31] MEDS: carvediloL 6.25 MG TABLET PO SCH ×2 (09:54→17:21)
[2021-01-31] MEDS: NIFEdipine XL (24 HR) 60 MG TAB.ER.24 PO SCH (09:55)
[2021-01-31] MEDS: polyethylene glycoL 3350 17 GM POWD.PACK PO SCH (09:55)
[2021-01-31] MEDS: Ringers Solution, Lactated 1,000 ML IVC SCH (15:03)
[2021-02-01] MEDS: Ipratropium/Albuterol Neb 3 ML IH SCH ×4 (04:13→22:49)
[2021-02-01 04:35] LABS: Basophils # 0.1 K/mcL (0.0-0.2); Basophils % 0.7 %; Eosinophils # 0.5 K/mcL (0.0-0.6); Eosinophils % 5.6 %; Hematocrit 30.7 % (37.5-50.1); Hemoglobin 9.7 g/dL (12.9-16.9); Immature Granulocytes % 0.4 % (0-4); Lymphocytes # 1.6 K/mcL (0.6-4.6); Lymphocytes % 19.6 %; Mean Corpuscular HGB Conc 31.6 g/dL (31.6-35.5); Mean Corpuscular Hemoglobin 31.5 pg (28.0-33.3); Mean Corpuscular Volume 99.7 fL (83.0-100.0); Mean Platelet Volume 10.9 fL (9.4-12.4); Monocytes # 0.7 K/mcL (0.0-1.3); Monocytes % 8.9 %; Neutrophils # 5.3 K/mcL (1.6-8.9); Platelet Count 228 K/mcL (140-400); Red Blood Count 3.08 M/mcL (4.19-5.50); Segmented Neutrophils % 64.8 %; White Blood Count 8.2 K/mcL (4.3-11.1)
[2021-02-01 04:54] LABS: BUN/Creatinine Ratio 27 (6-26); Blood Urea Nitrogen 33 mg/dL (8-23); Calcium 9.1 mg/dL (8.6-10.3); Carbon Dioxide 29 mEq/L (23-29); Chloride 102 mEq/L (98-107); Glucose 111 mg/dL (70-105); Osmolality,Calculated 294 (280-300); Potassium 4.4 mEq/L (3.5-5.1); Sodium 138 mEq/L (136-145); eGFR For African Americans > 60 (> 60); eGFR For Non-African Americans 57 (> 60)
[2021-02-01] MEDS: carvediloL 6.25 MG TABLET PO SCH ×2 (09:30→16:20)
[2021-02-01] MEDS: Sennosides/Docusate Sodium TABLET PO SCH ×2 (09:30→21:03)
[2021-02-01] MEDS: Multivit/Ca/Min/Fe/FA 1 TAB TABLET PO SCH (09:30)
[2021-02-01] MEDS: polyethylene glycoL 3350 17 GM POWD.PACK PO SCH (09:31)
[2021-02-01] MEDS: Pregabalin 75 MG CAPSULE PO SCH ×2 (09:31→21:02)
[2021-02-01] MEDS: NIFEdipine XL (24 HR) 60 MG TAB.ER.24 PO SCH (09:31)
[2021-02-01] MEDS: Furosemide 40 MG TABLET PO SCH (09:31)
[2021-02-01] MEDS: Ringers Solution, Lactated 1,000 ML IVC SCH (10:30)
[2021-02-01] MEDS: Insulin LISPRO 300 UNITS/3 ML VIAL SUBQ SCH (21:05)
[2021-02-02] MEDS: Ipratropium/Albuterol Neb 3 ML IH SCH ×3 (04:03→15:44)
[2021-02-02 06:47] LABS: Basophils # 0.1 K/mcL (0.0-0.2); Basophils % 0.6 %; Eosinophils # 0.5 K/mcL (0.0-0.6); Eosinophils % 5.2 %; Hematocrit 30.3 % (37.5-50.1); Hemoglobin 9.5 g/dL (12.9-16.9); Immature Granulocytes % 0.4 % (0-4); Lymphocytes # 1.5 K/mcL (0.6-4.6); Lymphocytes % 16.4 %; Mean Corpuscular HGB Conc 31.4 g/dL (31.6-35.5); Mean Corpuscular Hemoglobin 31.8 pg (28.0-33.3); Mean Corpuscular Volume 101.3 fL (83.0-100.0); Mean Platelet Volume 11.6 fL (9.4-12.4); Monocytes # 0.8 K/mcL (0.0-1.3); Monocytes % 8.5 %; Neutrophils # 6.2 K/mcL (1.6-8.9); Platelet Count 224 K/mcL (140-400); Red Blood Count 2.99 M/mcL (4.19-5.50); Red Cell Distribution Width 14.6 % (11.5-14.5); Segmented Neutrophils % 68.9 %
[2021-02-02 07:11] LABS: BUN/Creatinine Ratio 27 (6-26); Blood Urea Nitrogen 37 mg/dL (8-23); Calcium 9.4 mg/dL (8.6-10.3); Carbon Dioxide 31 mEq/L (23-29); Chloride 103 mEq/L (98-107); Glucose 148 mg/dL (70-105); Osmolality,Calculated 301 (280-300); Sodium 140 mEq/L (136-145); eGFR For African Americans > 60 (> 60); eGFR For Non-African Americans 50 (> 60)
[2021-02-02] MEDS: Furosemide 40 MG TABLET PO SCH (08:07)
[2021-02-02] MEDS: Multivit/Ca/Min/Fe/FA 1 TAB TABLET PO SCH (08:07)
[2021-02-02] MEDS: Pregabalin 75 MG CAPSULE PO SCH (08:07)
[2021-02-02] MEDS: Sennosides/Docusate Sodium TABLET PO SCH (08:07)
[2021-02-02] MEDS: NIFEdipine XL (24 HR) 60 MG TAB.ER.24 PO SCH (08:08)
[2021-02-02] MEDS: carvediloL 6.25 MG TABLET PO SCH ×2 (08:09→16:58)
[2021-02-02] MEDS: polyethylene glycoL 3350 17 GM POWD.PACK PO SCH (08:09)
[2021-02-02] MEDS ORDERED: Aspirin Enteric Coated 81 MG Tablet PO SCH (09:00)
[2021-02-02 13:54] LABS: Adenovirus Not Detected (Not Detect); Bordetella Pertussis Not Detected (Not Detect); Chlamydophila pneumoniae Not Detected (Not Detect); Coronavirus 229E Not Detected (Not Detect); Coronavirus HKU1 Not Detected (Not Detect); Coronavirus NL63 Not Detected (Not Detect); Coronavirus OC43 Not Detected (Not Detect); Human Metapneumovirus Not Detected (Not Detect); Human Rhinovirus/Enterovirus Not Detected (Not Detect); Influenza A Subtype 2009 H1 Not Detected (Not Detect); Influenza B Not Detected (Not Detect); Mycoplasma pneumoniae Not Detected (Not Detect); Parainfluenza Virus 1 Not Detected (Not Detect); Parainfluenza Virus 2 Not Detected (Not Detect); Parainfluenza Virus 3 Not Detected (Not Detect); Parainfluenza Virus 4 Not Detected (Not Detect); Respiratory Syncytial Virus Not Detected (Not Detect); SARS-CoV-2 Not Detected (Not Detect)
[2021-02-02] MEDS ORDERED: levoFLOXacin 750 MG TABLET PO SCH (14:30)
[2021-02-02 15:30] VITALS: BP 103/61
== END 2021-02-02 17:33 | disposition other institution (70) ==
LOC: ICNU → SUATTDRO 04:49 → 3ANU 15:29 → SUATTDRO 01-31 14:01
PROVIDERS: ADMIT Internal Medicine; ATTEND General Practice

== ENCOUNTER 2021-06-09 17:19 | Inpatient (IN) ==
[2021-06-09] MEDS ORDERED: 0.9 % Sodium Chloride 1,000 ML IVC ONE (18:27)
[2021-06-09 19:50] LABS: Basophils % 0.4 %; Eosinophils # 0.3 K/mcL (0.0-0.6); Eosinophils % 3.6 %; Hematocrit 39.4 % (37.5-50.1); Hemoglobin 12.5 g/dL (12.9-16.9); Immature Granulocytes % 0.4 % (0-4); Lymphocytes % 11.1 %; Mean Corpuscular HGB Conc 31.7 g/dL (31.6-35.5); Mean Corpuscular Volume 91.4 fL (83.0-100.0); Mean Platelet Volume 11.1 fL (9.4-12.4); Monocytes # 0.8 K/mcL (0.0-1.3); Monocytes % 9.3 %; Neutrophils # 6.8 K/mcL (1.6-8.9); Platelet Count 216 K/mcL (140-400); Red Blood Count 4.31 M/mcL (4.19-5.50); Red Cell Distribution Width 15.8 % (11.5-14.5); Segmented Neutrophils % 75.2 %
[2021-06-09 19:59] LABS: Activated Partial Thrombo Time 37.6 Seconds (26.0-36.0)
[2021-06-09 20:19] LABS: Alanine Aminotransferase 14 Units/L (7-52); Albumin 4.2 g/dL (3.5-5.7); Albumin/Globulin Ratio 1.3 (1.1-2.2); Alkaline Phosphatase 75 Units/L (34-104); Aspartate Amino Transferase 18 Units/L (13-39); BUN/Creatinine Ratio 14 (6-26); Bilirubin,Direct 0.1 mg/dL (0.0-0.2); Bilirubin,Indirect 0.5 mg/dL (0.0-1.0); Bilirubin,Total 0.6 mg/dL (0.3-1.0); Blood Urea Nitrogen 22 mg/dL (8-23); Calcium 9.8 mg/dL (8.6-10.3); Carbon Dioxide 28 mEq/L (23-29); Chloride 102 mEq/L (98-107); Creatine Kinase 88 Units/L (30-223); Globulin 3.2 g/dL (2.4-3.5); Glucose 180 mg/dL (70-105); Lipase 33 Units/L (11-82); Osmolality,Calculated 302 (280-300); Potassium 3.1 mEq/L (3.5-5.1); Sodium 142 mEq/L (136-145); Total Protein 7.4 g/dL (6.4-8.9); Troponin I 0.05 ng/mL (< 0.04); eGFR For African Americans 51 (> 60); eGFR For Non-African Americans 42 (> 60)
[2021-06-09 20:32] LABS: Influenza A PCR Negative (Negative); Influenza B PCR Negative (Negative); Resp. Syncytial Virus PCR Negative (Negative)
[2021-06-09 20:40] LABS: SARS-CoV-2 by PCR (In House) Negative (Negative)
[2021-06-09 20:43] LABS: Amorphous Sediment,Urine Few per hpf (None-Few); Bacteria,Urine Few per hpf (None-Few); Bilirubin,Urine Negative (Negative); Blood,Urine Negative (Negative); Budding Yeast,Urine Few per hpf (None Seen); Clarity,Urine Turbid (Clear); Color,Urine Light-Yellow (Yellow); Glucose,Urine (UA) Normal (Normal); Hyaline Casts,Urine Few per lpf (None Seen); Ketones,Urine Negative (Negative); Leukocyte Esterase,Urine Moderate (Negative); Mucus,Urine Few per lpf (None-Few); Nitrite,Urine Negative (Negative); PH,Urine 7.5 pH Units (5.0-8.0); Protein,Urine Trace mg/dL (Neg-Trace); RBC,Urine 0-3 per hpf (0-3); Specific Gravity,Urine 1.013 (1.010-1.025); Urobilinogen,Urine Normal (Normal); WBC,Urine 30-50 per hpf (0-3)
[2021-06-09 20:52] LABS: Ethanol < 10 mg/dL (Less than 10)
[2021-06-09 21:01] LABS: Amphetamine Screen,Urine Negative ng/mL (Cutoff=1000); Barbiturate Screen,Urine Negative ng/mL (Cutoff=200); Benzodiazepines Screen,Urine Negative ng/mL (Cutoff=200); Cannabinoid Screen,Urine Negative ng/mL (Cutoff = 50); Cocaine Screen,Urine Negative ng/mL (Cutoff= 300); Opiate Screen,Urine Negative ng/mL (Cutoff=300); Phencyclidine Screen,Urine Negative ng/mL (Cutoff=25)
[2021-06-09] MEDS ORDERED: cefTRIAXone 1,000 MG in Water for inj. (sterile) 10 ML IVP ONE (21:10)
[2021-06-09] MEDS ORDERED: Haloperidol Lactate 5 MG/ML VIAL IM ONE (21:17)
[2021-06-09] MEDS ORDERED: *HR* LORazepam 2 MG/ML VIAL IM ONE (21:18)
[2021-06-09] MEDS ORDERED: Naloxone 0.4 MG/ML INJ IVP PRN (22:21)
[2021-06-09] MEDS ORDERED: Ondansetron 4 MG/2 ML VIAL IVP PRN (22:21)
[2021-06-10] MEDS: Ampicillin 1,000 MG in 0.9 % Sodium Chloride Mini Bag 100 ML IVPB SCH ×2 (02:13→20:33)
[2021-06-10] MEDS: Nystatin Ointment 15 GM TUBE TP SCH ×5 (02:17→21:01)
[2021-06-10 02:51] LABS: Basophils % 0.3 %; Eosinophils # 0.3 K/mcL (0.0-0.6); Eosinophils % 2.7 %; Hematocrit 37.1 % (37.5-50.1); Hemoglobin 11.8 g/dL (12.9-16.9); Immature Granulocytes % 0.5 % (0-4); Lymphocytes # 1.4 K/mcL (0.6-4.6); Lymphocytes % 11.7 %; Mean Corpuscular HGB Conc 31.8 g/dL (31.6-35.5); Mean Corpuscular Hemoglobin 29.1 pg (28.0-33.3); Mean Corpuscular Volume 91.6 fL (83.0-100.0); Mean Platelet Volume 11.1 fL (9.4-12.4); Monocytes # 1.3 K/mcL (0.0-1.3); Monocytes % 11.2 %; Neutrophils # 8.6 K/mcL (1.6-8.9); Platelet Count 194 K/mcL (140-400); Red Blood Count 4.05 M/mcL (4.19-5.50); Red Cell Distribution Width 15.9 % (11.5-14.5); Segmented Neutrophils % 73.6 %; White Blood Count 11.7 K/mcL (4.3-11.1)
[2021-06-10 03:03] LABS: Calcium 9.2 mg/dL (8.6-10.3); Magnesium 1.9 mg/dL (1.6-2.6); Potassium 3.3 mEq/L (3.5-5.1)
[2021-06-10] MEDS ORDERED: NIFEdipine Immed Rel 10 MG CAPSULE PO ONE (04:55)
[2021-06-10] MEDS ORDERED: D5% in Water 1,000 ML IVC PRN (09:11)
[2021-06-10] MEDS ORDERED: *HR* Dextrose 50 % in Water (Vial) 50 ML VIAL IVP PRN (09:11)
[2021-06-10] MEDS ORDERED: Dextrose Gel 15 GM/37.5 ML TUBE PO PRN ×2 (09:11)
[2021-06-10] MEDS: Furosemide 20 MG TABLET PO SCH (12:14)
[2021-06-10] MEDS: carvediloL 6.25 MG TABLET PO SCH ×2 (12:20→16:17)
[2021-06-10] MEDS ORDERED: Aspirin 325 MG TABLET PO SCH (12:30)
[2021-06-10] MEDS ORDERED: Amoxicillin 500 MG CAPSULE PO ONE ×6 (14:02→23:00)
[2021-06-10] MEDS ORDERED: Potassium Chloride Elixir 20 MEQ/15 ML UDC PO ONE (14:08)
[2021-06-10] MEDS: Aspirin 81 MG TAB.CHEW PO SCH (14:37)
[2021-06-10 15:02] LABS: Bacteria,Urine Few per hpf (None-Few); Bilirubin,Urine Negative (Negative); Blood,Urine Small (Negative); Clarity,Urine Turbid (Clear); Color,Urine Yellow (Yellow); Glucose,Urine (UA) Normal (Normal); Hyaline Casts,Urine Few per lpf (None Seen); Ketones,Urine Negative (Negative); Leukocyte Esterase,Urine Large (Negative); Mucus,Urine Few per lpf (None-Few); Nitrite,Urine Negative (Negative); Protein,Urine 70 mg/dL (Neg-Trace); RBC,Urine 15-30 per hpf (0-3); Specific Gravity,Urine 1.016 (1.010-1.025); Squamous Epithelial Cell,Urine Few per hpf (None-Few); Urobilinogen,Urine Normal (Normal); WBC,Urine TNTC per hpf (0-3)
[2021-06-10] MEDS: Levalbuterol Neb 1.25 MG/3 ML IH SCH (22:27)
[2021-06-11] MEDS: Levalbuterol Neb 1.25 MG/3 ML IH SCH ×4 (03:27→21:54)
[2021-06-11 06:47] LABS: Basophils % 0.3 %; Eosinophils # 0.3 K/mcL (0.0-0.6); Eosinophils % 3.8 %; Hematocrit 36.4 % (37.5-50.1); Hemoglobin 11.4 g/dL (12.9-16.9); Immature Granulocytes % 0.3 % (0-4); Lymphocytes # 1.3 K/mcL (0.6-4.6); Lymphocytes % 14.3 %; Mean Corpuscular HGB Conc 31.3 g/dL (31.6-35.5); Mean Corpuscular Hemoglobin 29.5 pg (28.0-33.3); Mean Corpuscular Volume 94.1 fL (83.0-100.0); Mean Platelet Volume 11.5 fL (9.4-12.4); Monocytes # 1.1 K/mcL (0.0-1.3); Monocytes % 12.7 %; Platelet Count 191 K/mcL (140-400); Red Blood Count 3.87 M/mcL (4.19-5.50); Red Cell Distribution Width 16.3 % (11.5-14.5); Segmented Neutrophils % 68.6 %; White Blood Count 8.7 K/mcL (4.3-11.1)
[2021-06-11 07:14] LABS: BUN/Creatinine Ratio 13 (6-26); Blood Urea Nitrogen 17 mg/dL (8-23); Calcium 9.4 mg/dL (8.6-10.3); Carbon Dioxide 24 mEq/L (23-29); Chloride 107 mEq/L (98-107); Glucose 154 mg/dL (70-105); Osmolality,Calculated 297 (280-300); Potassium 3.6 mEq/L (3.5-5.1); Sodium 141 mEq/L (136-145); eGFR For African Americans > 60 (> 60); eGFR For Non-African Americans 54 (> 60)
[2021-06-11] MEDS: Nystatin Ointment 15 GM TUBE TP SCH ×4 (08:04→22:52)
[2021-06-11] MEDS: Aspirin 81 MG TAB.CHEW PO SCH (08:04)
[2021-06-11] MEDS: carvediloL 6.25 MG TABLET PO SCH ×2 (08:04→16:25)
[2021-06-11] MEDS: Amoxicillin 500 MG CAPSULE PO SCH ×3 (08:04→22:51)
[2021-06-11] MEDS: Furosemide 20 MG TABLET PO SCH ×3 (08:04→16:25)
[2021-06-11] MEDS ORDERED: Nitroglycerin 0.4 MG TAB.SUBL SL PRN (09:05)
[2021-06-11] MEDS: hydrALAZINE 25 MG TABLET PO SCH (16:25)
[2021-06-12] MEDS: hydrALAZINE 25 MG TABLET PO SCH ×3 (02:48→17:08)
[2021-06-12] MEDS: Levalbuterol Neb 1.25 MG/3 ML IH SCH ×4 (03:44→21:59)
[2021-06-12] MEDS: carvediloL 6.25 MG TABLET PO SCH ×2 (08:06→17:08)
[2021-06-12] MEDS: Aspirin Enteric Coated 81 MG Tablet PO SCH (08:06)
[2021-06-12] MEDS: Furosemide 20 MG TABLET PO SCH ×2 (08:06→17:08)
[2021-06-12] MEDS: Amoxicillin 500 MG CAPSULE PO SCH ×3 (08:08→20:38)
[2021-06-12] MEDS: Insulin LISPRO 300 UNITS/3 ML VIAL SUBQ SCH ×4 (08:09→20:38)
[2021-06-12] MEDS: Nystatin Ointment 15 GM TUBE TP SCH ×4 (08:09→21:54)
[2021-06-13] MEDS: hydrALAZINE 25 MG TABLET PO SCH ×4 (01:05→23:40)
[2021-06-13] MEDS: Levalbuterol Neb 1.25 MG/3 ML IH SCH ×4 (04:26→21:32)
[2021-06-13] MEDS: Furosemide 20 MG TABLET PO SCH ×2 (08:32→16:23)
[2021-06-13] MEDS: Aspirin Enteric Coated 81 MG Tablet PO SCH (08:32)
[2021-06-13] MEDS: Pregabalin 75 MG CAPSULE PO SCH ×2 (08:32→21:56)
[2021-06-13] MEDS: carvediloL 6.25 MG TABLET PO SCH ×2 (08:32→16:23)
[2021-06-13] MEDS: Insulin LISPRO 300 UNITS/3 ML VIAL SUBQ SCH ×4 (08:32→21:57)
[2021-06-13] MEDS: Nystatin Ointment 15 GM TUBE TP SCH ×4 (08:34→21:57)
[2021-06-13 19:36] LABS: ABG Base Excess 1 mEq/L (-2 to 3); ABG HCO3 26 mEq/L (21-27); ABG Oxygen Saturation 86 % (95-98); ABG PCO2 43 mmHg (35-45); ABG PH 7.39 pH Units (7.32-7.45); ABG PO2 52 mmHg (85-104); ABG TCO2 27 mEq/L (20-26)
[2021-06-13] MEDS: Acetaminophen 325 MG TABLET PO PRN (23:40)
[2021-06-14] MEDS: Piperacillin/Tazobactam 3.375 GM in 0.9 % Sodium Chloride Mini Bag 100 ML IVPB SCH ×3 (01:30→16:48)
[2021-06-14] MEDS: Levalbuterol Neb 1.25 MG/3 ML IH SCH ×4 (03:46→22:10)
[2021-06-14 06:44] LABS: Hematocrit 36.2 % (37.5-50.1); Mean Corpuscular HGB Conc 30.4 g/dL (31.6-35.5); Mean Corpuscular Hemoglobin 28.9 pg (28.0-33.3); Mean Corpuscular Volume 95.3 fL (83.0-100.0); Mean Platelet Volume 10.9 fL (9.4-12.4); Platelet Count 201 K/mcL (140-400); Red Cell Distribution Width 16.3 % (11.5-14.5); White Blood Count 9.5 K/mcL (4.3-11.1)
[2021-06-14 07:08] LABS: Calcium 8.9 mg/dL (8.6-10.3); Magnesium 2.2 mg/dL (1.6-2.6); Phosphorous 5.1 mg/dL (2.7-4.5); Potassium 3.4 mEq/L (3.5-5.1)
[2021-06-14] MEDS ORDERED: Piperacillin/Tazobactam 3.375 GM VIAL ONE (08:14)
[2021-06-14] MEDS: Furosemide 20 MG TABLET PO SCH (08:39)
[2021-06-14] MEDS: Pregabalin 75 MG CAPSULE PO SCH (08:39)
[2021-06-14] MEDS: Aspirin Enteric Coated 81 MG Tablet PO SCH (08:40)
[2021-06-14] MEDS: Nystatin Ointment 15 GM TUBE TP SCH ×3 (08:40→16:49)
[2021-06-14] MEDS: hydrALAZINE 25 MG TABLET PO SCH ×2 (08:40→16:49)
[2021-06-14] MEDS: carvediloL 6.25 MG TABLET PO SCH ×2 (08:40→16:49)
[2021-06-14] MEDS: Insulin LISPRO 300 UNITS/3 ML VIAL SUBQ SCH ×4 (11:03→21:15)
[2021-06-14 14:59] LABS: Sodium, Urine 25.6 mEq/L
[2021-06-14] MEDS: 0.9 % Sodium Chloride 1,000 ML IVC SCH (15:04)
[2021-06-14 16:40] LABS: Adenovirus Not Detected (Not Detect); Bordetella Pertussis Not Detected (Not Detect); Chlamydophila pneumoniae Not Detected (Not Detect); Coronavirus 229E Not Detected (Not Detect); Coronavirus HKU1 Not Detected (Not Detect); Coronavirus NL63 Not Detected (Not Detect); Coronavirus OC43 Not Detected (Not Detect); Human Metapneumovirus Not Detected (Not Detect); Human Rhinovirus/Enterovirus Not Detected (Not Detect); Influenza A Subtype 2009 H1 Not Detected (Not Detect); Influenza B Not Detected (Not Detect); Mycoplasma pneumoniae Not Detected (Not Detect); Parainfluenza Virus 1 Not Detected (Not Detect); Parainfluenza Virus 2 Not Detected (Not Detect); Parainfluenza Virus 3 DETECTED (Not Detect); Parainfluenza Virus 4 Not Detected (Not Detect); Respiratory Syncytial Virus Not Detected (Not Detect); SARS-CoV-2 Not Detected (Not Detect)
[2021-06-15] MEDS: Piperacillin/Tazobactam 3.375 GM in 0.9 % Sodium Chloride Mini Bag 100 ML IVPB SCH ×3 (00:29→17:03)
[2021-06-15] MEDS: hydrALAZINE 25 MG TABLET PO SCH ×3 (00:29→17:04)
[2021-06-15] MEDS: Levalbuterol Neb 1.25 MG/3 ML IH SCH ×4 (03:35→22:58)
[2021-06-15] MEDS: Nystatin Ointment 15 GM TUBE TP SCH ×5 (03:38→23:15)
[2021-06-15 07:55] LABS: Basophils % 0.4 %; Eosinophils # 0.5 K/mcL (0.0-0.6); Eosinophils % 5.3 %; Hematocrit 34.3 % (37.5-50.1); Hemoglobin 10.6 g/dL (12.9-16.9); Immature Granulocytes % 0.2 % (0-4); Lymphocytes # 1.3 K/mcL (0.6-4.6); Lymphocytes % 12.9 %; Mean Corpuscular HGB Conc 30.9 g/dL (31.6-35.5); Mean Corpuscular Hemoglobin 29.5 pg (28.0-33.3); Mean Corpuscular Volume 95.5 fL (83.0-100.0); Mean Platelet Volume 11.1 fL (9.4-12.4); Monocytes # 0.8 K/mcL (0.0-1.3); Monocytes % 8.2 %; Neutrophils # 7.1 K/mcL (1.6-8.9); Platelet Count 213 K/mcL (140-400); Red Blood Count 3.59 M/mcL (4.19-5.50); White Blood Count 9.7 K/mcL (4.3-11.1)
[2021-06-15 08:10] LABS: Calcium 8.5 mg/dL (8.6-10.3); Magnesium 2.1 mg/dL (1.6-2.6); Phosphorous 3.9 mg/dL (2.7-4.5); Potassium 3.6 mEq/L (3.5-5.1)
[2021-06-15] MEDS: carvediloL 6.25 MG TABLET PO SCH ×2 (08:23→17:04)
[2021-06-15] MEDS: Aspirin Enteric Coated 81 MG Tablet PO SCH (08:25)
[2021-06-15] MEDS: Acetaminophen 325 MG TABLET PO PRN (08:37)
[2021-06-15] MEDS: Insulin LISPRO 300 UNITS/3 ML VIAL SUBQ SCH ×4 (12:41→22:47)
[2021-06-16] MEDS: hydrALAZINE 25 MG TABLET PO SCH ×3 (00:44→16:54)
[2021-06-16] MEDS ORDERED: *HR* LORazepam 2 MG/ML VIAL IVP ONE (00:51)
[2021-06-16] MEDS: Piperacillin/Tazobactam 3.375 GM in 0.9 % Sodium Chloride Mini Bag 100 ML IVPB SCH ×2 (02:52→10:13)
[2021-06-16] MEDS: Levalbuterol Neb 1.25 MG/3 ML IH SCH ×4 (04:07→21:41)
[2021-06-16] MEDS: 0.9 % Sodium Chloride 1,000 ML IVC SCH ×3 (06:47→07:56)
[2021-06-16] MEDS: Aspirin Enteric Coated 81 MG Tablet PO SCH (08:04)
[2021-06-16] MEDS: carvediloL 6.25 MG TABLET PO SCH ×2 (08:04→16:54)
[2021-06-16 10:12] LABS: BUN/Creatinine Ratio 24 (6-26); Blood Urea Nitrogen 28 mg/dL (8-23); Calcium 9.1 mg/dL (8.6-10.3); Carbon Dioxide 21 mEq/L (23-29); Chloride 107 mEq/L (98-107); Glucose 156 mg/dL (70-105); Osmolality,Calculated 295 (280-300); Potassium 3.6 mEq/L (3.5-5.1); Sodium 138 mEq/L (136-145); eGFR For African Americans > 60 (> 60); eGFR For Non-African Americans > 60 (> 60)
[2021-06-16] MEDS: Insulin LISPRO 300 UNITS/3 ML VIAL SUBQ SCH ×4 (10:12→19:49)
[2021-06-16] MEDS: Nystatin Ointment 15 GM TUBE TP SCH ×4 (10:13→19:40)
[2021-06-16 14:07] LABS: BUN/Creatinine Ratio 25 (6-26); Blood Urea Nitrogen 32 mg/dL (8-23); Carbon Dioxide 17 mEq/L (23-29); Chloride 114 mEq/L (98-107); Glucose 131 mg/dL (70-105); Osmolality,Calculated 315 (280-300); Sodium 148 mEq/L (136-145); eGFR For African Americans > 60 (> 60); eGFR For Non-African Americans 55 (> 60)
[2021-06-16] MEDS ORDERED: levoFLOXacin 750 MG TABLET PO ONE (14:59)
[2021-06-16 18:13] LABS: Magnesium 2.1 mg/dL (1.6-2.6); Phosphorous 2.8 mg/dL (2.7-4.5)
[2021-06-17] MEDS: hydrALAZINE 25 MG TABLET PO SCH ×2 (00:14→08:45)
[2021-06-17] MEDS: Levalbuterol Neb 1.25 MG/3 ML IH SCH ×2 (04:21→10:28)
[2021-06-17] MEDS: Aspirin Enteric Coated 81 MG Tablet PO SCH (08:44)
[2021-06-17] MEDS: carvediloL 6.25 MG TABLET PO SCH (08:44)
[2021-06-17] MEDS: Insulin LISPRO 300 UNITS/3 ML VIAL SUBQ SCH ×2 (08:49→12:11)
[2021-06-17] MEDS: Nystatin Ointment 15 GM TUBE TP SCH (08:50)
[2021-06-17 08:58] VITALS: BP 196/76; PULSE 74; TEMP 98.2; O2SAT 93
[2021-06-17] MEDS ORDERED: amLODIPine 5 MG TABLET PO SCH (09:30)
== END 2021-06-17 14:14 | DRG 698 ==
LOC: 3ANU 17:19 → EMEROOARM 17:19 → SUATTDRO 23:52 → 3ANU 06-10 00:43
PROVIDERS: ADMIT Internal Medicine; ATTEND Internal Medicine

== ENCOUNTER 2021-12-13 02:46 | Inpatient (IN) ==
[2021-12-13] MEDS ORDERED: *HR* OxyCODONE Immed Rel 5 MG TABLET PO PRN (06:56)
[2021-12-13] MEDS ORDERED: Naloxone 0.4 MG/ML INJ IVP PRN (06:56)
[2021-12-13] MEDS ORDERED: Ondansetron 4 MG/2 ML VIAL IVP PRN (06:56)
[2021-12-13] MEDS ORDERED: *HR* HYDROcodone/Acet 5/325 mg TABLET PO PRN (06:56)
[2021-12-13] MEDS ORDERED: Acetaminophen 325 MG TABLET PO PRN (06:56)
[2021-12-13] MEDS ORDERED: Dextrose 4 GM Chewable Tablets PO PRN ×2 (08:08)
[2021-12-13] MEDS ORDERED: Melatonin 3 MG TABLET PO PRN (08:08)
[2021-12-13] MEDS ORDERED: *HR* Dextrose 50 % in Water (Syg) 50 ML SYRINGE IVP PRN (08:08)
[2021-12-13] MEDS ORDERED: D5% in Water 1,000 ML IVC PRN (08:09)
[2021-12-13] MEDS ORDERED: Nitroglycerin 0.4 MG TAB.SUBL SL PRN (08:10)
[2021-12-13] MEDS ORDERED: Ipratropium/Albuterol Neb 3 ML IH PRN (08:14)
[2021-12-13] MEDS ORDERED: Ipratropium/Albuterol Neb 3 ML IH ONE (08:14)
[2021-12-13] MEDS ORDERED: Furosemide 20 MG TABLET PO SCH (09:00)
[2021-12-13] MEDS: carvediloL 6.25 MG TABLET PO SCH ×2 (09:04→16:35)
[2021-12-13] MEDS: Furosemide 40 MG/4 ML VIAL IVP SCH ×2 (09:05→11:00)
[2021-12-13] MEDS: Aspirin Enteric Coated 81 MG Tablet PO SCH (09:05)
[2021-12-13] MEDS: Cefepime HCl 1,000 MG in 0.9 % Sodium Chloride 10 ML IVP SCH ×2 (11:42→18:11)
[2021-12-13] MEDS: Insulin LISPRO 300 UNITS/3 ML VIAL SUBQ SCH ×3 (11:51→21:07)
[2021-12-13] MEDS: *HR* Heparin 5,000 UNIT/ML VIAL SQ SCH ×2 (16:34→21:06)
[2021-12-13] MEDS: hydrALAZINE 25 MG TABLET PO SCH (16:35)
[2021-12-14] MEDS: hydrALAZINE 25 MG TABLET PO SCH ×3 (01:15→16:58)
[2021-12-14] MEDS: Cefepime HCl 1,000 MG in 0.9 % Sodium Chloride 10 ML IVP SCH ×3 (01:15→16:59)
[2021-12-14] MEDS: *HR* Heparin 5,000 UNIT/ML VIAL SQ SCH ×3 (05:10→21:24)
[2021-12-14 06:09] LABS: BUN/Creatinine Ratio 18 (6-26); Blood Urea Nitrogen 22 mg/dL (8-23); Calcium 8.7 mg/dL (8.6-10.3); Carbon Dioxide 29 mEq/L (23-29); Chloride 101 mEq/L (98-107); Glucose 156 mg/dL (70-105); Osmolality,Calculated 289 (280-300); Potassium 4.2 mEq/L (3.5-5.1); Sodium 136 mEq/L (136-145); eGFR For African Americans > 60 (> 60); eGFR For Non-African Americans 59 (> 60)
[2021-12-14 06:44] LABS: Basophils % 0.2 %; Eosinophils % 0.1 %; Hematocrit 31.6 % (37.5-50.1); Hemoglobin 10.3 g/dL (12.9-16.9); Immature Granulocytes % 0.5 % (0-4); Lymphocytes # 1.4 K/mcL (0.6-4.6); Lymphocytes % 12.3 %; Mean Corpuscular HGB Conc 32.6 g/dL (31.6-35.5); Mean Corpuscular Hemoglobin 30.5 pg (28.0-33.3); Mean Corpuscular Volume 93.5 fL (83.0-100.0); Mean Platelet Volume 10.4 fL (9.4-12.4); Monocytes % 8.7 %; Neutrophils # 8.6 K/mcL (1.6-8.9); Platelet Count 237 K/mcL (140-400); Red Blood Count 3.38 M/mcL (4.19-5.50); Segmented Neutrophils % 78.2 %; White Blood Count 10.9 K/mcL (4.3-11.1)
[2021-12-14] MEDS: carvediloL 6.25 MG TABLET PO SCH ×2 (08:31→16:58)
[2021-12-14] MEDS: Aspirin Enteric Coated 81 MG Tablet PO SCH (08:31)
[2021-12-14] MEDS: Furosemide 40 MG/4 ML VIAL IVP SCH (08:33)
[2021-12-14] MEDS: Insulin LISPRO 300 UNITS/3 ML VIAL SUBQ SCH ×4 (08:41→21:24)
[2021-12-14] MEDS: Saline Nasal Spray 44 ML BOTTLE NS PRN (14:24)
[2021-12-15] MEDS: Cefepime HCl 1,000 MG in 0.9 % Sodium Chloride 10 ML IVP SCH ×3 (00:29→17:20)
[2021-12-15] MEDS: hydrALAZINE 25 MG TABLET PO SCH ×4 (00:30→22:54)
[2021-12-15 03:11] LABS: Basophils % 0.4 %; Eosinophils # 0.2 K/mcL (0.0-0.6); Eosinophils % 2.2 %; Hemoglobin 10.7 g/dL (12.9-16.9); Immature Granulocytes % 0.2 % (0-4); Lymphocytes # 1.6 K/mcL (0.6-4.6); Mean Corpuscular HGB Conc 32.4 g/dL (31.6-35.5); Mean Corpuscular Hemoglobin 30.8 pg (28.0-33.3); Mean Corpuscular Volume 95.1 fL (83.0-100.0); Mean Platelet Volume 10.8 fL (9.4-12.4); Monocytes % 10.1 %; Neutrophils # 7.2 K/mcL (1.6-8.9); Platelet Count 234 K/mcL (140-400); Red Blood Count 3.47 M/mcL (4.19-5.50); Red Cell Distribution Width 14.8 % (11.5-14.5); Segmented Neutrophils % 71.1 %; White Blood Count 10.1 K/mcL (4.3-11.1)
[2021-12-15 03:27] LABS: BUN/Creatinine Ratio 24 (6-26); Blood Urea Nitrogen 25 mg/dL (8-23); Carbon Dioxide 33 mEq/L (23-29); Chloride 101 mEq/L (98-107); Glucose 87 mg/dL (70-105); Osmolality,Calculated 290 (280-300); Potassium 4.2 mEq/L (3.5-5.1); Sodium 138 mEq/L (136-145); eGFR For African Americans > 60 (> 60); eGFR For Non-African Americans > 60 (> 60)
[2021-12-15] MEDS: *HR* Heparin 5,000 UNIT/ML VIAL SQ SCH ×3 (06:09→20:35)
[2021-12-15] MEDS: Insulin LISPRO 300 UNITS/3 ML VIAL SUBQ SCH ×4 (06:56→20:36)
[2021-12-15] MEDS: carvediloL 6.25 MG TABLET PO SCH ×2 (07:15→17:20)
[2021-12-15] MEDS: Aspirin Enteric Coated 81 MG Tablet PO SCH (09:09)
[2021-12-15] MEDS: Saline Nasal Spray 44 ML BOTTLE NS PRN (09:10)
[2021-12-15] MEDS: Furosemide 40 MG/4 ML VIAL IVP SCH (09:11)
[2021-12-16] MEDS: Cefepime HCl 1,000 MG in 0.9 % Sodium Chloride 10 ML IVP SCH ×2 (01:43→09:31)
[2021-12-16] MEDS: *HR* Heparin 5,000 UNIT/ML VIAL SQ SCH ×3 (04:45→20:05)
[2021-12-16] MEDS: Insulin LISPRO 300 UNITS/3 ML VIAL SUBQ SCH ×4 (07:59→20:05)
[2021-12-16] MEDS: carvediloL 6.25 MG TABLET PO SCH ×2 (09:30→17:21)
[2021-12-16] MEDS: hydrALAZINE 25 MG TABLET PO SCH ×3 (09:30→23:24)
[2021-12-16] MEDS: Aspirin Enteric Coated 81 MG Tablet PO SCH (09:30)
[2021-12-16] MEDS: Furosemide 40 MG/4 ML VIAL IVP SCH (09:30)
[2021-12-16 10:14] LABS: Estimated Average Glucose 134 mg/dl; Hemoglobin A1C 6.3 %
[2021-12-16] MEDS: Albumin 25% 25gram/100mL 25 GM/100 ML IV.SOLN IVPB SCH ×2 (17:21→23:24)
[2021-12-17] MEDS: Saline Nasal Spray 44 ML BOTTLE NS PRN (05:09)
[2021-12-17] MEDS: *HR* Heparin 5,000 UNIT/ML VIAL SQ SCH ×3 (05:09→20:30)
[2021-12-17] MEDS: Insulin LISPRO 300 UNITS/3 ML VIAL SUBQ SCH ×4 (08:27→20:11)
[2021-12-17] MEDS: Albumin 25% 25gram/100mL 25 GM/100 ML IV.SOLN IVPB SCH (08:35)
[2021-12-17] MEDS: Furosemide 40 MG/4 ML VIAL IVP SCH (08:36)
[2021-12-17] MEDS: carvediloL 6.25 MG TABLET PO SCH ×2 (08:36→16:37)
[2021-12-17] MEDS: hydrALAZINE 25 MG TABLET PO SCH ×3 (08:37→23:54)
[2021-12-17] MEDS: Aspirin Enteric Coated 81 MG Tablet PO SCH (08:37)
[2021-12-18] MEDS: *HR* Heparin 5,000 UNIT/ML VIAL SQ SCH ×3 (05:15→20:59)
[2021-12-18] MEDS: Insulin LISPRO 300 UNITS/3 ML VIAL SUBQ SCH ×4 (08:02→20:59)
[2021-12-18] MEDS: Aspirin Enteric Coated 81 MG Tablet PO SCH (09:05)
[2021-12-18] MEDS: Furosemide 40 MG/4 ML VIAL IVP SCH (09:05)
[2021-12-18] MEDS: hydrALAZINE 25 MG TABLET PO SCH ×3 (09:05→23:30)
[2021-12-18] MEDS: carvediloL 6.25 MG TABLET PO SCH ×2 (09:05→16:41)
[2021-12-19 05:50] LABS: Basophils # 0.1 K/mcL (0.0-0.2); Basophils % 0.7 %; Eosinophils # 0.6 K/mcL (0.0-0.6); Eosinophils % 6.1 %; Hematocrit 34.8 % (37.5-50.1); Hemoglobin 11.7 g/dL (12.9-16.9); Immature Granulocytes % 0.4 % (0-4); Lymphocytes # 1.4 K/mcL (0.6-4.6); Lymphocytes % 13.2 %; Mean Corpuscular HGB Conc 33.6 g/dL (31.6-35.5); Mean Corpuscular Hemoglobin 31.3 pg (28.0-33.3); Mean Platelet Volume 10.8 fL (9.4-12.4); Monocytes % 9.6 %; Neutrophils # 7.2 K/mcL (1.6-8.9); Platelet Count 249 K/mcL (140-400); Red Blood Count 3.74 M/mcL (4.19-5.50); Red Cell Distribution Width 14.8 % (11.5-14.5); White Blood Count 10.3 K/mcL (4.3-11.1)
[2021-12-19] MEDS: *HR* Heparin 5,000 UNIT/ML VIAL SQ SCH (05:59)
[2021-12-19 06:03] LABS: BUN/Creatinine Ratio 23 (6-26); Blood Urea Nitrogen 28 mg/dL (8-23); Calcium 9.3 mg/dL (8.6-10.3); Carbon Dioxide 27 mEq/L (23-29); Chloride 101 mEq/L (98-107); Glucose 134 mg/dL (70-105); Osmolality,Calculated 289 (280-300); Potassium 4.6 mEq/L (3.5-5.1); Sodium 136 mEq/L (136-145); eGFR For African Americans > 60 (> 60); eGFR For Non-African Americans 59 (> 60)
[2021-12-19] MEDS: hydrALAZINE 25 MG TABLET PO SCH (07:59)
[2021-12-19] MEDS: Furosemide 40 MG/4 ML VIAL IVP SCH (07:59)
[2021-12-19] MEDS: Insulin LISPRO 300 UNITS/3 ML VIAL SUBQ SCH ×2 (08:00→12:02)
[2021-12-19] MEDS: Aspirin Enteric Coated 81 MG Tablet PO SCH (08:00)
[2021-12-19] MEDS: carvediloL 6.25 MG TABLET PO SCH (08:00)
[2021-12-19 11:02] VITALS: PULSE 57; TEMP 97.4; O2SAT 97
[2021-12-19 11:19] VITALS: BP 103/70
== END 2021-12-19 14:04 | disposition home health service (06) | DRG 291 ==
LOC: 2NNU → SUATTDRO 06:56 → 3BNU 17:50
PROVIDERS: ADMIT Internal Medicine; ATTEND Registered Nurse